=== PATIENT | female | born 1970 | race Caucasian/White ===

== ENCOUNTER 2019-10-15 09:51 | Outpatient (CLI) | payer OTHER, SELFPAY ==
--- NOTE | 2019-10-15 09:56 | US_ITS ---
WS: [id number] ULTRASOUND PELVIS TECHNIQUE: Transabdominal and transvaginal. ULTRASOUND PELVIS TECHNIQUE: Transabdominal. CLINICAL INFORMATION: PELVIC PAIN LMP: Menopause : No. COMPARISON: None. FINDINGS: Cervix measures 2.3 cm Uterus Orientation: Anteverted. Size: 5.50 cm x 3.5 cm x 2.3 cm. Masses: None. Cervix: 2.3 cm. Endometrium: Normal. Endometrium thickness: 0.4 cm. Adnexa: Normal. Right ovary size: 1.7 cm x 1.1 cm x 1.8 cm. Right ovary volume: 1.7 ccm3. Left ovary size: 1.3 cm x 1.0 cm x 0.5 cm. Left ovary volume: 0.3 ccm3 Free fluid: None. Other findings: None. US/US pelvic with transvaginal IMPRESSION: 1. Normal uterus and cervix. 2. Fluid in the cul-de-sac. 3. Ovaries are somewhat diminutive but otherwise normal in appearance
== END 2019-10-15 09:52 | disposition home or self-care (01) ==
LOC: RAD 09:55
PROVIDERS: PCP Family Medicine; Visit Provider Family Medicine
DX: R10.2 Pelvic and perineal pain (principal)
CPT/HCPCS: 76830; 76856

== ENCOUNTER 2019-12-18 14:38 | Outpatient (CLI) | payer OTHER, SELFPAY ==
--- NOTE | 2019-12-18 14:43 | MM_ITS ---
WS: [id number] BILATERAL SCREENING DIGITAL MAMMOGRAM WITH CAD HISTORY: SCREENING COMPARISON: None available. Bilateral CC and MLO views submitted. Computer aided detection analyzed. Breast composition: There are scattered areas of fibroglandular density. No suspicious masses, microc alcifications or architectural distortion. MM/[place] [id number] IMPRESSION: BI-RADS: 1-Negative FOLLOW UP: 1 Year Follow-up
== END 2019-12-18 14:39 | disposition home or self-care (01) ==
LOC: RADSHAW 14:42
PROVIDERS: PCP Family Medicine; Visit Provider Family Medicine
DX: Z12.31 Encounter for screening mammogram for malignant neoplasm of breast (principal)
CPT/HCPCS: 77067

== ENCOUNTER → 2019-12-20 17:14 | Outpatient (BNVA) | payer OTHER, SELFPAY | PROVIDERS: PCP Family Medicine; Visit Provider Surgery | DX: Z11.59 Encounter for screening for other viral diseases (principal) | CPT/HCPCS: 87635 ==

== ENCOUNTER 2019-12-25 07:54 | Day surgery (SDC) | payer OTHER, SELFPAY ==
[2019-12-21 07:20] VITALS: BMI 28.3
[2019-12-25 08:09] VITALS: BP 130/78; PULSE 92; RESP 18; TEMP 36.8; O2SAT 99
[2019-12-25] MEDS: sodium chloride 0.9% 1,000 ML 30 ML IV (08:15)
--- NOTE | 2019-12-25 08:51 | ANES.PREANE2 ---
Pre-Anesthetic Assessment Pre-Anesthetic Assessment: Height/Weight: Height 1.63 m Weight 74.843 kg Temp Pulse Resp BP Pulse Ox 98.3 F 92 18 130/78 99 12/25/19 08:09 12/25/19 08:09 12/25/19 08:09 12/25/19 08:09 12/25/19 08:09 Preop Diagnosis: screening Proposed Procedure: Operation Date: 12/25/19 09:30 Proposed Procedures p Colonoscopy 15111 Z12.11(Not Applicable) - Ze Bal MD Familial anesthetic complications: None Was Beta Harpreet taken within 24 hours: N/A Last intake: Intake Last Liquid Date 12/24/19 Last Liquid Time 23:52 Last Solid Date 12/22/19 Last Solid Time 07:00 Social: Social History: No alcohol and No tobacco Exam: Pre-Anes Outpt Exam: alert, oriented x 3, clear to auscultation bilaterally and regular rate & rhythm Airway: Cervical ROM: WNL MP: 1 Dentition: Other (missing) GI: GI: GERD Metabolic: Metabolic: Thyroid Neuropsych: Neuropsych: Anxiety Anesthetic Plan: ASA status: 2 Anesthesia: MAC Risk of > 500 ml blood loss (7ml/kg in children): No Data Anesthesia Cardiac Studies: No Data to Display
--- NOTE | 2019-12-25 10:52 | P.HP_ITS ---
Same Day Surgery H&P Indication for Procedure/HPI DATE OF PROCEDURE: December 25, 2019 CHIEF COMPLAINT/INDICATIONFOR SURGICAL PROCEDURE: screening colonoscopy PREOP DIAGNOSIS: screening PLANNED PROCEDRUE: Operation Date: 12/25/19 09:30 Proposed Procedures p Colonoscopy 20340 Z12.11(Not Applicable) - Ze Bal MD Medications/Allergies* Home Medications Medication Instructions Recorded Confirmed Type amitriptyline 25 mg tablet 75 mg PO DAILY 11/13/19 12/25/19 History clonazepam 1 mg tablet 1.5 mg PO BID tab 11/13/19 12/21/19 History epinephrine 0.3 mg/0.3 mL 0.3 mg IM Q10M PRN 11/13/19 12/21/19 History injection, auto-injector fluticasone propionate 50 1 spray INTRANASAL BID PRN 11/13/19 12/21/19 History mcg/actuation nasal spray,suspension gabapentin 100 mg capsule 100 mg PO TID 11/13/19 12/21/19 History levothyroxine 125 mcg capsule 125 mcg PO DAILY 11/13/19 12/21/19 History sumatriptan succinate 100 mg tablet See Rx Instructions PO .COMPLEX 11/13/19 12/21/19 History bupropion HCl [Wellbutrin XL] 150 mg PO QAM 12/21/19 12/21/19 History fexofenadine-pseudoephedrine 1 tab PO QAM 12/21/19 12/21/19 History [Joy-D 24 Hour] Allergies/Adverse Reactions Allergy/AdvReac Type Severity Reaction Status Date / Time Penicillins Allergy ALGY-Anaphy Verified 11/13/19 13:40 laxis venom-honey bee Allergy ALGY-Anaphy Verified 11/13/19 13:40 laxis Pertinent Exam Findings alert, oriented x 3 and regular rate & rhythm Recommendations Surgery/Procedure today Coding Level of Care Code Acute Remittance Clerk for Ankit Willis
[2019-12-25 11:26] VITALS: BP 118/81; PULSE 75; RESP 18; TEMP 36.1; O2SAT 100
[2019-12-25 11:44] VITALS: BP 122/84; PULSE 76; RESP 16; O2SAT 100
== END 2019-12-25 11:50 | disposition home or self-care (01) ==
PROVIDERS: PCP Family Medicine; Visit Provider Surgery
PROC: 0DJD8ZZ Inspection of Lower Intestinal Tract, Via Natural or Artificial Opening Endoscopic (ICD-10-PCS; CPT 45378; principal; 2019-12-25 09:30)
DX: Z12.11 Encounter for screening for malignant neoplasm of colon (principal); Z80.0 Family history of malignant neoplasm of digestive organs; F41.9 Anxiety disorder, unspecified
CPT/HCPCS: 12345; 45378; J2704; J7030

== ENCOUNTER 2020-09-08 12:38 | Outpatient (CLI) | payer SELFPAY ==
--- NOTE | 2020-09-08 12:49 | XR_ITS ---
WS: [id number] PROCEDURE: XR chest 2V* [id number] CLINICAL INFORMATION: RIGHT COSTOCHONDRITIS COMPARISON: FINDINGS: Heart: Normal cardiac silhouette. Lungs: Moderate chronic emphysematous changes. No acute pulmonary infiltrates. No focal consolidation or pleural fluid. Bones: Mild thoracic kyphosis. Disc space narrowing thoracolumbar junction. XR/XR chest 2V* [id number] IMPRESSION: 1. Moderate chronic emphysematous changes. 2. No acute pulmonary infiltrates. No focal pneumonia or pleural fluid.
--- NOTE | 2020-09-08 12:49 | XR_ITS ---
WS: [id number] KNEE LEFT TECHNIQUE: 3 views of the left knee CLINICAL INFORMATION: ACUTE LEFT KNEE PAIN COMPARISON: None. FINDINGS: Normal anatomic alignment. Mild tricompartmental arthritis. Slight hypertrophic changes along the levon nt line. Normal patella. Small suprapatellar effusion. XR/XR knee LT 3V* [id number] IMPRESSION: 1. Mild tricompartmental arthritis. No acute fractures. 2. Mild soft tissue edema. Small suprapatellar effusion. Kellgren-Bassem Classification: grade 2 (minimal): definite osteophytes and p ossible joint space narrowing
--- NOTE | 2020-09-08 12:49 | XR_ITS ---
WS: [id number] SHOULDER LEFT TECHNIQUE: 3 views of the left shoulder CLINICAL INFORMATION: LT SHOULDER PAIN COMPARISON: None. FINDINGS: Normal acromioclavicular joint. Normal glenohumeral joint. Acromion is normal in appearance. Normal g lenoid. No evidence of acute fracture dislocation. XR/XR shoulder LT min 2V* [id number] IMPRESSION: Normal left shoulder.
== END 2020-09-08 12:39 | disposition home or self-care (01) ==
PROVIDERS: PCP Family Medicine; Visit Provider Clinical Nurse Specialist Adult Health
DX: M94.0 Chondrocostal junction syndrome [Tietze] (principal); M25.512 Pain in left shoulder; M25.562 Pain in left knee; R60.0 Localized edema; M13.862 Other specified arthritis, left knee
CPT/HCPCS: 71046; 73030; 73562

== ENCOUNTER 2020-11-03 10:57 | Outpatient (CLI) | payer MEDICARE, SELFPAY ==
--- NOTE | 2020-11-03 11:09 | CT_ITS ---
WS: [id number] CT CHEST TECHNIQUE: Contrast enhanced CT of the chest with coronal and sagittal reformatted images. CLINICAL INFORMATION: DYSPNEA, ABNORMAL CHEST RADIOGRAPH COMPARISON: Radiograph September 08, 2020 DLP: 798.[address] scans at [facility] use at least one of these dose optimization techniques: automated e xposure control; mA and/or kV adjustment per patient size (includes targeted exams where dose is matc hed to clinical indication); or iterative reconstruction. FINDINGS: Both lungs are well aerated. No acute pulmonary infiltrates. No focal consolidation or pleural fluid. Normal caliber thoracic aorta. Proximal main pulmonary arteries are normal. Normal GE junction. No m ediastinal or hilar lymphadenopathy. No axillary lymphadenopathy. CT/CT chest w con* [id number] IMPRESSION: 1. No acute pulmonary infiltrates. No consolidation or pleural fluid. 2. No mediastinal or hilar lymphadenopathy. 3. No other significant findings.
[2020-11-03] MEDS: iohexol 300 mg/mL 100 mL Btl IV (11:25)
== END 2020-11-03 10:58 | disposition home or self-care (01) ==
PROVIDERS: PCP Family Medicine; Visit Provider Family Medicine
DX: R06.00 Dyspnea, unspecified (principal); R91.8 Other nonspecific abnormal finding of lung field
CPT/HCPCS: 71260; Q9967

== ENCOUNTER → 2021-06-22 14:58 | Outpatient (BNVA) | payer MEDICARE, SELFPAY | PROVIDERS: PCP Family Medicine; Visit Provider Family Medicine | DX: R53.83 Other fatigue (principal); F41.9 Anxiety disorder, unspecified | CPT/HCPCS: 80053; 82607; 83880; 84443; 85025; 86140; 86200 ==

== ENCOUNTER 2021-09-03 12:31 | Outpatient (CLI) | payer MEDICARE, SELFPAY ==
--- NOTE | 2021-09-03 12:47 | XR_ITS ---
WS: [id number] Right foot, AP and lateral views, 09/03/2021 Clinical Data: BILATERAL ANKLE PAIN Comparison: None. Findings: No fractures or dislocations are seen. No bone destruction or erosion is noted. The joint spaces and soft tissues are normal. XR/XR foot RT 2V [id number] Impression: Negative right foot.
--- NOTE | 2021-09-03 12:47 | XR_ITS ---
WS: [id number] Right ankle, AP and lateral views, 09/03/2021 Clinical Data: R ANKLE PAIN Comparison: None. Findings: No fractures or dislocations are seen. The ankle mortise is normal. The talus and calcaneus are unrem arkable. No soft tissue swelling over the medial or lateral malleolus is seen. XR/XR ankle RT 2V [id number] Impression: Negative right ankle.
--- NOTE | 2021-09-03 12:47 | XR_ITS ---
WS: [id number] Left ankle, AP and lateral views, 09/03/2021 Clinical Data: L ANKLE PAIN Comparison: None. Findings: No fractures or dislocations are seen. The ankle mortise is normal. The talus and calcaneus are unrem arkable. There is swelling over the medial and lateral malleolus. There is a plantar spur. XR/XR ankle LT 2V [id number] Impression: Soft tissue swelling over medial and lateral malleolus.
--- NOTE | 2021-09-03 12:47 | XR_ITS ---
WS: [id number] Left foot, AP and lateral views, 09/03/2021 Clinical Data: BILATERAL ANKLE PAIN Comparison: None. Findings: No fractures or dislocations are seen. No bone destruction or erosion is noted. The joint spaces and soft tissues are normal. XR/XR foot LT 2V [id number] Impression: Negative left foot.
== END 2021-09-03 12:32 | disposition home or self-care (01) ==
LOC: RAD 12:35
PROVIDERS: PCP Family Medicine; Visit Provider Family Medicine
DX: M25.571 Pain in right ankle and joints of right foot (principal); M25.572 Pain in left ankle and joints of left foot; M79.89 Other specified soft tissue disorders
CPT/HCPCS: 73600; 73620

== ENCOUNTER → 2021-10-14 10:49 | Outpatient (BNVA) | payer MEDICARE, SELFPAY | PROVIDERS: PCP Family Medicine; Visit Provider Internal Medicine | DX: M25.50 Pain in unspecified joint (principal); Z11.59 Encounter for screening for other viral diseases; Z11.1 Encounter for screening for respiratory tuberculosis; R79.82 Elevated C-reactive protein (CRP) | CPT/HCPCS: 73120; 73522; 73600; 81003; 82550; 83516; 85651; 86140; 86160; 86162; 86200; 86235; 86255; 86376; 86431; 86480; 86704; 86803; 87340; 99214 ==

== ENCOUNTER → 2021-11-24 08:52 | Outpatient (BNVA) | payer MEDICARE, SELFPAY | PROVIDERS: PCP Family Medicine; Visit Provider Internal Medicine | DX: R76.8 Other specified abnormal immunological findings in serum (principal); M79.673 Pain in unspecified foot; R79.82 Elevated C-reactive protein (CRP) | CPT/HCPCS: 99214 ==

== ENCOUNTER 2022-03-15 12:30 | Outpatient (CLI) | payer MEDICARE, SELFPAY ==
[2022-03-15 13:05] LABS: Basophils # 0.1 10^3/uL (0.0-0.1); Basophils % 1.4 %; Eosinophils # 0.3 10^3/uL (0.0-0.8); Eosinophils % 5.1 %; Hematocrit 39.9 % (37.0-47.0); Hemoglobin 12.6 g/dL (11.5-15.3); Lymphocytes # 2.7 10^3/uL (0.8-4.8); Lymphocytes % 42.2 %; Mean Corpuscular HGB Conc 31.6 g/dL (30.0-36.0); Mean Corpuscular Volume 101.3 fl (81-99); Mean Platelet Volume 9.6 fL (7.4-10.4); Monocytes # 0.5 10^3/uL (0.2-0.9); Monocytes % 7.3 %; Neutrophils # 2.77 10^3/uL (1.8-7.7); Neutrophils % 43.8 %; Nucleated Red Blood Cells % 0 %; Platelet Count 276 10^3/cmm (130-400); Red Blood Count 3.94 10^6/uL (4.1-5.3); Red Cell Distribution Width 11.9 % (12.1-15.1); White Blood Count 6.3 10^3/uL (4.0-10.0)
[2022-03-15 13:23] LABS: Alanine Aminotransferase 20 U/L (0-33); Albumin Level 4.3 g/dL (3.5-5.2); Alkaline Phosphatase 113 U/L (35-105); Anion Gap 13.3 (5-19); Aspartate Amino Transferase 23 U/L (0-32); Blood Urea Nitrogen 10 mg/dL (6-20); C Reactive Protein 3.3 mg/L (0.0-4.9); Calcium 8.9 mg/dL (8.5-10.5); Carbon Dioxide 26 mmol/L (22-29); Chloride 106 mmol/L (98-107); Globulin 2.8 g/dL (1.3-4.6); Glomerular Filtration Rate 65.5 mL/min (90-130); Glucose 96 mg/dL (65-115); Osmolality Calculated 291 mOsm/kg (285-295); Potassium 4.3 mmol/L (3.5-5.1); Sodium 141 mmol/L (136-145); Total Bilirubin 0.2 mg/dL (0.15-1.2); Total Protein 7.1 g/dL (6.6-8.7)
[2022-03-15 13:30] LABS: Erythrocyte Sedimentation Rate 3 mm/hr (0-15)
== END 2022-03-15 12:31 | disposition home or self-care (01) ==
PROVIDERS: PCP Family Medicine; Visit Provider Internal Medicine
DX: G89.29 Other chronic pain (principal); R13.10 Dysphagia, unspecified; R51.9 Headache, unspecified
CPT/HCPCS: 36415; 80053; 85025; 85651; 86140

== ENCOUNTER → 2022-04-05 11:54 | Outpatient (BNVA) | payer MEDICARE, SELFPAY | PROVIDERS: PCP Family Medicine; Visit Provider Internal Medicine | DX: M06.9 Rheumatoid arthritis, unspecified (principal); R76.8 Other specified abnormal immunological findings in serum; M79.673 Pain in unspecified foot; R79.82 Elevated C-reactive protein (CRP); R13.10 Dysphagia, unspecified; D75.89 Other specified diseases of blood and blood-forming organs | CPT/HCPCS: 36415; 72100; 80053; 81291; 82533; 84436; 84439; 84443; 85025; 85651; 86140; 99214 ==

== ENCOUNTER 2022-04-12 06:30 | Outpatient (CLI) | payer MEDICARE, SELFPAY ==
--- NOTE | 2022-04-12 06:30 | CT_ITS ---
WS: [id number] CT HEAD TECHNIQUE: Noncontrast and contrast-enhanced CT of the head. CLINICAL INFORMATION: evaluate for MS COMPARISON: MRI 2018 DLP: 1997.[address] scans at [facility] use at least one of these dose optimization techniques: automated e xposure control; mA and/or kV adjustment per patient size (includes targeted exams where dose is matc hed to clinical indication); or iterative reconstruction. FINDINGS: No evidence of intracranial hemorrhage or mass effect. Ventricular system and basal cisterns are noel nt. No abnormal intracranial enhancement. Previously described demyelinating lesions better seen on M RI. No significant parenchymal volume loss. Normal posterior fossa. Mild mucosal thickening ethmoid air cells. Mastoid air cells well aerated. CT/CT head wo/w con 13051 IMPRESSION: 1. No evidence of intracranial hemorrhage or mass effect. 2. Previously described demyelinating lesions seen on the prior MRI not well s een on this study. White matter lesions would be better evaluated with MRI. 3. No abnormal intracranial enhancement. 4. No significant parenchymal volume loss. 5. No other acute findings.
[2022-04-12] MEDS: iohexol 350 mg/mL 500 mL Btl (per mL) IV (07:17)
== END 2022-04-12 06:31 | disposition home or self-care (01) ==
LOC: RAD 06:33
PROVIDERS: PCP Family Medicine; Visit Provider Family Medicine
DX: R51.9 Headache, unspecified (principal); G89.29 Other chronic pain
CPT/HCPCS: 70470; Q9967

== ENCOUNTER → 2022-06-29 08:59 | Outpatient (BNVA) | payer MEDICARE, SELFPAY | PROVIDERS: PCP Family Medicine; Visit Provider Internal Medicine | DX: R76.8 Other specified abnormal immunological findings in serum (principal); E03.9 Hypothyroidism, unspecified; M79.673 Pain in unspecified foot; D75.89 Other specified diseases of blood and blood-forming organs; Z15.89 Genetic susceptibility to other disease | CPT/HCPCS: 99214 ==

== ENCOUNTER → 2022-10-27 13:46 | Outpatient (BNVA) | payer MEDICARE, SELFPAY | PROVIDERS: PCP Family Medicine; Visit Provider Internal Medicine | DX: R76.8 Other specified abnormal immunological findings in serum (principal); M79.673 Pain in unspecified foot; D75.89 Other specified diseases of blood and blood-forming organs; Z15.89 Genetic susceptibility to other disease; E03.9 Hypothyroidism, unspecified | CPT/HCPCS: 99214 ==

== ENCOUNTER 2022-11-04 13:47 | Outpatient (CLI) | payer MEDICARE, SELFPAY ==
[2022-11-04 14:45] LABS: Basophils # 0.1 10^3/uL (0.0-0.1); Basophils % 1.4 %; Eosinophils # 0.3 10^3/uL (0.0-0.8); Eosinophils % 4.2 %; Hematocrit 39.7 % (36-47); Lymphocytes # 1.9 10^3/uL (0.8-4.8); Lymphocytes % 23.9 %; Mean Corpuscular Hemoglobin 32.5 pg (27-33); Mean Corpuscular Volume 101.5 fl (85-98); Mean Platelet Volume 8.9 fL (7.4-10.4); Monocytes # 0.3 10^3/uL (0.2-0.9); Monocytes % 4.1 %; Neutrophils # 5.15 10^3/uL (1.8-7.7); Nucleated Red Blood Cells % 0 %; Platelet Count 324 10^3/cmm (157-399); Red Blood Count 3.91 10^6/uL (3.85-5.65); Red Cell Distribution Width 12.5 % (12.1-15.1); White Blood Count 7.81 10^3/uL (3.29-11.43)
[2022-11-04 14:47] LABS: Erythrocyte Sedimentation Rate 8 mm/hr (0-15)
[2022-11-04 15:04] LABS: Alanine Aminotransferase 13 U/L (0-33); Albumin Level 4.2 g/dL (3.5-5.2); Alkaline Phosphatase 98 U/L (35-105); Anion Gap 12.8 (5-19); Aspartate Amino Transferase 18 U/L (0-32); Blood Urea Nitrogen 25 mg/dL (6-20); Calcium 9.3 mg/dL (8.5-10.5); Carbon Dioxide 28 mmol/L (22-29); Chloride 104 mmol/L (98-107); Globulin 3.1 g/dL (1.3-4.6); Glomerular Filtration Rate 42.7 mL/min (90-130); Glucose 89 mg/dL (65-115); Osmolality Calculated 292 mOsm/kg (285-295); Potassium 5.8 mmol/L (3.5-5.1); Sodium 139 mmol/L (136-145); Total Bilirubin 0.2 mg/dL (0.15-1.2); Total Protein 7.3 g/dL (6.6-8.7)
== END 2022-11-04 13:48 | disposition home or self-care (01) ==
PROVIDERS: PCP Family Medicine; Visit Provider Internal Medicine
DX: R76.8 Other specified abnormal immunological findings in serum (principal); M25.50 Pain in unspecified joint
CPT/HCPCS: 36415; 80053; 85025; 85651; 86140

== ENCOUNTER → 2022-11-18 09:01 | Outpatient (BNVA) | payer MEDICARE, SELFPAY | PROVIDERS: PCP Family Medicine; Referring Provider Internal Medicine; Visit Provider Internal Medicine | DX: E03.9 Hypothyroidism, unspecified (principal); R13.10 Dysphagia, unspecified; E66.9 Obesity, unspecified; Z71.3 Dietary counseling and surveillance; Z79.890 Hormone replacement therapy; Z68.32 Body mass index [BMI] 32.0-32.9, adult | CPT/HCPCS: 36415; 84439; 84443; 99204 ==

== ENCOUNTER 2022-11-26 11:46 | Outpatient (CLI) | payer MEDICARE, SELFPAY ==
[2022-11-26 12:49] LABS: Alanine Aminotransferase 12 U/L (0-33); Albumin Level 4.5 g/dL (3.5-5.2); Alkaline Phosphatase 96 U/L (35-105); Anion Gap 14.2 (5-19); Aspartate Amino Transferase 20 U/L (0-32); Blood Urea Nitrogen 19 mg/dL (6-20); Calcium 9.6 mg/dL (8.5-10.5); Carbon Dioxide 27 mmol/L (22-29); Chloride 100 mmol/L (98-107); Creatine Phosphokinase 58 U/L (26-192); Globulin 3.2 g/dL (1.3-4.6); Glomerular Filtration Rate 51.8 mL/min (90-130); Glucose 89 mg/dL (65-115); Osmolality Calculated 284 mOsm/kg (285-295); Potassium 5.2 mmol/L (3.5-5.1); Sodium 136 mmol/L (136-145); Total Bilirubin 0.3 mg/dL (0.15-1.2); Total Protein 7.7 g/dL (6.6-8.7)
[2022-11-26 13:14] LABS: Add Urine Culture? No; Add Urine Microscopic? YES; Bacteria Urine 1+ /hpf; Bilirubin Urine Neg (Negative); Blood Urine Neg (Negative); Glucose Urine UA Norm (Normal); Ketones Urine Negative (Negative); Leukocyte Esterase Urine 2+ (Negative); Nitrate Urine Negative (Negative); Protein Urine Neg (Negative); RBC Urine 0-4 /hpf (0-2); Urine Appearance SL Hazy (CLEAR); Urine Color Yellow (Yellow); Urobilinogen Urine Norm (Negative); WBC Urine 25-40 /hpf (0-5); pH Urine 5 (5-7)
== END 2022-11-26 11:47 | disposition home or self-care (01) ==
LOC: LAB 11:47
PROVIDERS: PCP Family Medicine; Visit Provider Internal Medicine
DX: E87.5 Hyperkalemia (principal)
CPT/HCPCS: 36415; 80053; 81001; 82550; 84100

== ENCOUNTER → 2023-01-04 14:11 | Outpatient (BNVA) | payer MEDICARE, SELFPAY | PROVIDERS: PCP Family Medicine; Visit Provider Internal Medicine | DX: E03.9 Hypothyroidism, unspecified (principal); Z15.89 Genetic susceptibility to other disease; R76.8 Other specified abnormal immunological findings in serum; D75.89 Other specified diseases of blood and blood-forming organs; E87.5 Hyperkalemia | CPT/HCPCS: 36415; 73600; 80053; 81001; 83090; 85025; 87086; 99213 ==

== ENCOUNTER → 2023-03-16 11:00 | Outpatient (BNVA) | payer MEDICARE, SELFPAY | PROVIDERS: PCP Family Medicine; Visit Provider Internal Medicine | DX: R63.5 Abnormal weight gain (principal); E03.9 Hypothyroidism, unspecified; Z71.3 Dietary counseling and surveillance; E66.9 Obesity, unspecified; Z79.890 Hormone replacement therapy; Z68.28 Body mass index [BMI] 28.0-28.9, adult | CPT/HCPCS: 36415; 84439; 84443; 99214 ==

== ENCOUNTER 2023-05-12 14:33 | Outpatient (CLI) | payer MEDICARE, SELFPAY ==
[2023-05-12 15:41] LABS: Free T4 Free Thyroxine 1.17 ng/dL (0.82-1.77)
[2023-05-13 11:00] LABS: Thyroid Stimulating Hormone 1.79 uIU/mL (0.27-4.20)
== END 2023-05-12 14:34 | disposition home or self-care (01) ==
LOC: LAB 14:38
PROVIDERS: PCP Family Medicine; Visit Provider Internal Medicine
DX: E03.9 Hypothyroidism, unspecified (principal); R63.5 Abnormal weight gain
CPT/HCPCS: 36415; 84439; 84443

== ENCOUNTER → 2023-05-13 09:01 | Outpatient (BNVA) | payer MEDICARE, SELFPAY | PROVIDERS: PCP Family Medicine; Visit Provider Internal Medicine | DX: R63.5 Abnormal weight gain (principal); E03.9 Hypothyroidism, unspecified; G35 Multiple sclerosis; R13.10 Dysphagia, unspecified; E66.9 Obesity, unspecified; R29.818 Other symptoms and signs involving the nervous system | CPT/HCPCS: 99214 ==

== ENCOUNTER 2023-06-05 22:05 | Emergency (ER) | payer MEDICARE, SELFPAY ==
[2023-06-05 22:13] VITALS: BP 128/84; PULSE 103; RESP 16; TEMP 36.7; O2SAT 97; BMI 26.6
--- NOTE | 2023-06-05 23:03 | W.ED.GENADLT ---
HPI - General Adult General: Chief complaint: General Medical Stated complaint: welps bite on neck nausea dizzy fever Time Seen by Provider: 06/05/23 22:56 History of Present Illness: 52-year-old female reports that she was bit on the back of her neck about 7 to 10 days ago. Patient reports that she did not know what better. But since then she has felt unwell. Patient reports worsening symptoms today. Patient appears nontoxic. Patient does have a history of MS. Review of Systems General: Reports: 10 or more systems reviewed and unremarkable except in HPI and below PFSH ED PFSH: Medical History Multiple sclerosis Undifferentiated connective tissue disease Hypothyroidism Foot pain Surgical History Status post colonoscopy (12/25/19) repeat in 5 years Social History Smoking and tobacco/nicotine status: never used tobacco/nicotine Physical Exam Const: COMMON NORMALS: alert HENMT: COMMON NORMALS: normocephalic HEAD & SCALP: normocephalic Neck/C-Spine: COMMON NORMALS: full ROM Chest: COMMONS NORMALS: normal inspection of the chest Resp: COMMON NORMALS: normal respiratory effort Cardio: COMMON NORMALS: regular rate RATE: regular rate GI: COMMON NORMALS: non-tender Back/Pelvis: COMMON NORMALS: thoracic and lumbar spine normal to inspection Extremity: COMMON NORMALS: full ROM Neuro: SENSORIUM/ORIENTATION: Yes alert Skin: COMMON NORMALS: turgor normal NARRATIVE SKIN EXAM: 3 scabbed lesions to the back of the neck appear to be healing insect bites. No other abnormalities noted on skin GENERAL SKIN EXAM: turgor normal Course Vital Signs: Vital signs: Vital Signs Temperature 98.1 F 06/05/23 22:13 Pulse Rate 89 06/05/23 23:18 Respiratory Rate 16 06/05/23 23:18 Blood Pressure 113/76 06/05/23 23:18 Pulse Oximetry 95 06/05/23 23:18 Oxygen Delivery Me thod Room Air 06/05/23 23:18 MDM - General Adult Medical Decision Making Patient comes in today for concerns of insect bite to the back of her neck. On exam the insect bites appear to be healing without any signs of significant redness or abnormality. Patient reports some malaise. Respirations are even lungs are clear to auscultation. Skin is warm and dry vital signs are normal. Differential diagnosis includes not limited to anxiety about health, tickborne illness, viral syndrome, malingering. Laboratory values were unremarkable. Outstanding lab will be Panel. Believe patient might have a viral infection secondary to insect bite although this is not conclusive. This time I just recommended supportive care and following up with primary care for review of tick panel when it comes in. Patient was given 1 promethazine for complaints of nausea while in the ER. Lab Data 06/05/23 23:22 06/05/23 23:22 Laboratory Results WBC 8.91 10^3/uL (3.29-11.43) 06/05/23 23: RBC 3.93 10^6/uL (3.85-5.65) 06/05/23 23:22 Hgb 12.90 g/dL (11.27-16.99) 06/05/23 23: Hct 39.0 % (36-47) 06/05/23 23: MCV 99.2 fl (85-98) H 06/05/23 23: MCH 32.8 pg (27-33) 06/05/23 23: MCHC 33.1 g/dL (30-55) 06/05/23 23: RDW 13.0 % (12.1-15.1) 06/05/23 23:22 Plt Count 271 10^3/cmm (157-399) 06/05/23 23: MPV 9.0 fL (7.4-10.4) 06/05/23 23: Neut % (Auto) 81.5 % 06/05/23 23: Lymph % (Auto) 3.5 % 06/05/23 23: Roosevelt % (Auto) 1.9 % 06/05/23 23: Eos % (Auto) 12.6 % 06/05/23 23: Baso % (Auto) 0.2 % 06/05/23 23:22 Neut # (Auto) 7.26 10^3/uL (1.8-7.7) 06/05/23 23: Lymph # (Auto) 0.3 10^3/uL (0.8-4.8) L 06/05/23 23:22 Roosevelt # (Auto) 0.2 10^3/uL (0.2-0.9) 06/05/23 23:22 Eos # (Auto) 1.1 10^3/uL (0.0-0.8) H 06/05/23 23:22 Baso # (Auto) 0.0 10^3/uL (0.0-0.1) 06/05/23 23:22 Nucleated RBC % (auto) 0 % 06/05/23 23:22 Nucleated RBCs # 0.0 /100WBC 06/05/23 23:22 ESR 8 mm/hr (0-15) 06/05/23 23:22 Sodium 137 mmol/L (136-145) 06/05/23 23:22 Potassium 4.6 mmol/L (3.5-5.1) 06/05/23 23:22 Chloride 103 mmol/L (98-107) 06/05/23 23:22 Carbon Dioxide 21 mmol/L (22-29) L 06/05/23 23:22 Anion Gap 17.6 (5-19) 06/05/23 23:22 BUN 20 mg/dL (6-20) 06/05/23 23:22 Creatinine 1.1 mg/dL (0.5-0.9) H 06/05/23 23:22 GFR Calculation 51.8 mL/min (90-130) L 06/05/23 23:22 Glucose 120 mg/dL (65-115) H 06/05/23 23:22 Calculated Osmolality 288 mOsm/kg (285-295) 06/05/23 23:22 Calcium 9.1 mg/dL (8.5-10.5) 06/05/23 23:22 Total Bilirubin 0.4 mg/dL (0.15-1.2) 06/05/23 23:22 AST 22 U/L (0-32) 06/05/23 23:22 ALT 22 U/L (0-33) 06/05/23 23:22 Alkaline Phosphatase 119 U/L (35-105) H 06/05/23 23:22 C-Reactive Protein 12.8 mg/L (0.0-4.9) H 06/05/23 23:22 Total Protein 7.2 g/dL (6.6-8.7) 06/05/23 23:22 Albumin 4.4 g/dL (3.5-5.2) 06/05/23 23:22 Globulin 2.8 g/dL (1.3-4.6) 06/05/23 23:22 No radiology studies performed this visit Discharge Plan Discharge Patient Disposition: Home Clinical Impression: Insect bite, Nausea Condition: Stable Prescriptions: No Action epinephrine [EpiPen] 0.3 mg/0.3 mL auto-injector 0.3 mg IM Q10M PRN (Reason: Anaphylaxis) Rx Instructions: for 2 doses prednisone 5 mg tablet See Rx Instructions PO DAILY Qty: 30 0RF Rx Instructions: 1-2 tablets daily orally daily; Victoza 2-Mike 0.6 mg/0.1 mL (18 mg/3 mL) pen injector See Rx Instructions .ROUTE .COMPLEX Qty: 9 0RF Dose Instruction: INJECT 0.6mg SUBCUTANEOUSLY ONCE DAILY FOR SEVEN DAYS; THEN INJECT 1.2mg DAILY FOR SEVEN DAYS, THEN stay oon 1.8mg SUBCUTANEOUSLY DAILY Rx Instructions: 1.8mg SUBCUTANEOUSLY DAILY (DME) pen needle, diabetic [Comfort EZ Pen Campbell] 32 gauge x 3/16 needle See Rx Instructions .Route Qty: 100 0RF Rx Instructions: As directed May substitute meloxicam 7.5 mg tablet 7.5 mg PO DAILY Qty: 30 11RF hydroxychloroquine 200 mg tablet 200 mg PO BID Qty: 60 3RF benzonatate 100 mg capsule 100 mg PO TID PRN (Reason: cough) Qty: 45 0RF prednisone 20 mg tablet See Rx Instructions .Route .COMPLEX Qty: 14 0RF Rx Instructions: 2 tabs PO daily for 4 days, then 1 tab PO daily X 4 days, then 0.5 tab daily for 4 days, then stop; bupropion HCl 300 mg tablet extended release 24 hr See Rx Instructions .ROUTE .COMPLEX Qty: 30 12RF Dose Instruction: TAKE 1 TABLET BY MOUTH EVERY DAY Rx Instructions: TAKE 1 TABLET BY MOUTH EVERY DAY sumatriptan succinate 100 mg tablet See Rx Instructions .ROUTE .COMPLEX Qty: 9 11RF Dose Instruction: TAKE 1/2 TO 1 TABLET BY MOUTH EVERY 2 HOURS NEEDED FOR HEADACHES(MAX 2 IN 24 HOURS) Rx Instructions: TAKE 1/2 TO 1 TABLET BY MOUTH EVERY 2 HOURS NEEDED FOR HEADACHES(MAX 2 IN 24 HOURS) gabapentin 100 mg capsule See Rx Instructions .ROUTE .COMPLEX Qty: 90 3RF Dose Instruction: TAKE 1 CAPSULE BY MOUTH THREE TIMES DAILY Rx Instructions: TAKE 1 CAPSULE BY MOUTH THREE TIMES DAILY clonazepam 2 mg tablet 2 mg PO BID Qty: 60 4RF amitriptyline 25 mg tablet See Rx Instructions .ROUTE .COMPLEX Qty: 60 11RF Dose Instruction: TAKE 1-4 TABLETS BY MOUTH EVERY DAY AT NIGHT Rx Instructions: TAKE 1-4 TABLETS BY MOUTH EVERY DAY AT NIGHT fluoxetine 20 mg capsule See Rx Instructions .ROUTE .COMPLEX Qty: 30 11RF Dose Instruction: TAKE 1 CAPSULE BY MOUTH DAILY Rx Instructions: TAKE 1 CAPSULE BY MOUTH DAILY propranolol 10 mg tablet See Rx Instructions .ROUTE .COMPLEX Qty: 180 3RF Dose Instruction: TAKE 1 TABLET BY MOUTH TWICE DAILY Rx Instructions: TAKE 1 TABLET BY MOUTH TWICE DAILY levothyroxine 175 mcg tablet See Rx Instructions .ROUTE .COMPLEX Qty: 90 3RF Dose Instruction: TAKE 1 TABLET BY MOUTH EVERY DAY Rx Instructions: TAKE 1 TABLET BY MOUTH EVERY DAY Discharge Orders: Discharge ED (Routine); Ordered 06/06/23 Ordered By: Wenceslao Gunter Referrals: Antonio Nash MD [Primary Care Provider] - Discharge Diet: Usual diet Discharge Activity: Increase activity as tolerated Patient Instructions: Insect Bite or Sting (ED) Activity Restrictions/Additional Instructions: Drink plenty water and fluids. Use acetaminophen and/or ibuprofen as needed for discomfort. Get plenty of rest. Follow-up with primary care in 2 to 3 days for recheck. Results for tick panel should come back in 3 to 5 days. Coding Level of Care Code ED Weight And Balance Control Agent for Ankit Willis
[2023-06-05 23:18] VITALS: BP 113/76; PULSE 89; RESP 16; O2SAT 95
[2023-06-05 23:33] LABS: Erythrocyte Sedimentation Rate 8 mm/hr (0-15)
[2023-06-05 23:35] LABS: Basophils % 0.2 %; Eosinophils # 1.1 10^3/uL (0.0-0.8); Eosinophils % 12.6 %; Lymphocytes # 0.3 10^3/uL (0.8-4.8); Lymphocytes % 3.5 %; Mean Corpuscular HGB Conc 33.1 g/dL (30-55); Mean Corpuscular Hemoglobin 32.8 pg (27-33); Mean Corpuscular Volume 99.2 fl (85-98); Monocytes # 0.2 10^3/uL (0.2-0.9); Monocytes % 1.9 %; Neutrophils # 7.26 10^3/uL (1.8-7.7); Neutrophils % 81.5 %; Nucleated Red Blood Cells % 0 %; Platelet Count 271 10^3/cmm (157-399); Red Blood Count 3.93 10^6/uL (3.85-5.65); White Blood Count 8.91 10^3/uL (3.29-11.43)
[2023-06-05 23:50] LABS: Alanine Aminotransferase 22 U/L (0-33); Albumin Level 4.4 g/dL (3.5-5.2); Alkaline Phosphatase 119 U/L (35-105); Anion Gap 17.6 (5-19); Aspartate Amino Transferase 22 U/L (0-32); Blood Urea Nitrogen 20 mg/dL (6-20); C Reactive Protein 12.8 mg/L (0.0-4.9); Calcium 9.1 mg/dL (8.5-10.5); Carbon Dioxide 21 mmol/L (22-29); Chloride 103 mmol/L (98-107); Globulin 2.8 g/dL (1.3-4.6); Glomerular Filtration Rate 51.8 mL/min (90-130); Glucose 120 mg/dL (65-115); Osmolality Calculated 288 mOsm/kg (285-295); Potassium 4.6 mmol/L (3.5-5.1); Sodium 137 mmol/L (136-145); Total Bilirubin 0.4 mg/dL (0.15-1.2); Total Protein 7.2 g/dL (6.6-8.7)
[2023-06-06] MEDS: promethazine 25 mg Tablet PO (00:40)
[2023-06-06 00:43] VITALS: BP 120/83; PULSE 85; RESP 16; O2SAT 95
[2023-06-07 11:21] LABS: Lyme AB Screen <0.90 index
[2023-06-10 17:30] LABS: E. Chaffeensis AB IGG <1:64; E. Chaffeensis AB IGM <1:20
[2023-06-10 19:11] LABS: RMSF IGG NOT DETECTED; RMSF IGM NOT DETECTED
== END 2023-06-06 00:41 | disposition home or self-care (01) ==
PROVIDERS: Emergency Provider Nurse Practitioner Family; PCP Family Medicine
DX: S10.96XA Insect bite of unspecified part of neck, initial encounter (principal); W57.XXXA Bitten or stung by nonvenomous insect and other nonvenomous arthropods, initial encounter; R11.0 Nausea; G35 Multiple sclerosis
CPT/HCPCS: 36415; 80053; 85025; 85651; 86140; 86618; 86666; 86757; 99283; Q0169

== ENCOUNTER 2023-09-06 10:00 | Emergency (ER) | payer MEDICARE, SELFPAY ==
[2023-09-06 10:06] VITALS: BP 114/79; PULSE 73; RESP 18; TEMP 36.8; O2SAT 99
[2023-09-06 10:52] LABS: Basophils # 0.1 10^3/uL (0.0-0.1); Basophils % 1.7 %; Eosinophils # 1.1 10^3/uL (0.0-0.8); Eosinophils % 16.9 %; Hematocrit 38.8 % (36-47); Lymphocytes # 2.3 10^3/uL (0.8-4.8); Lymphocytes % 36.4 %; Mean Corpuscular HGB Conc 32.2 g/dL (30-55); Mean Corpuscular Hemoglobin 32.9 pg (27-33); Mean Corpuscular Volume 102.1 fl (85-98); Mean Platelet Volume 9.6 fL (7.4-10.4); Monocytes # 0.3 10^3/uL (0.2-0.9); Monocytes % 5.2 %; Neutrophils # 2.52 10^3/uL (1.8-7.7); Neutrophils % 39.6 %; Nucleated Red Blood Cells % 0 %; Platelet Count 302 10^3/cmm (157-399); Red Cell Distribution Width 12.1 % (12.1-15.1); White Blood Count 6.35 10^3/uL (3.29-11.43)
[2023-09-06 11:07] LABS: Alanine Aminotransferase 16 U/L (0-33); Albumin Level 4.1 g/dL (3.5-5.2); Alkaline Phosphatase 108 U/L (35-105); Anion Gap 17.7 (5-19); Aspartate Amino Transferase 19 U/L (0-32); Blood Urea Nitrogen 21 mg/dL (6-20); Calcium 9.2 mg/dL (8.5-10.5); Carbon Dioxide 22 mmol/L (22-29); Chloride 103 mmol/L (98-107); Globulin 3.2 g/dL (1.3-4.6); Glomerular Filtration Rate 51.8 mL/min (90-130); Glucose 81 mg/dL (65-115); Osmolality Calculated 288 mOsm/kg (285-295); Potassium 4.7 mmol/L (3.5-5.1); Sodium 138 mmol/L (136-145); Total Bilirubin 0.2 mg/dL (0.15-1.2); Total Protein 7.3 g/dL (6.6-8.7)
--- NOTE | 2023-09-06 11:25 | ECG_ITS ---
[facility] Test Date: 2023-09-06 Pat Name: Marleny Parekh Department: Room: Gender: Female Regional Environmental Manager: : 1970 Requested By: Benny Duncan Order Number: [id number] Iraj MD: Danial Mckinney M.D. Measurements Intervals Ary Rate: 66 P: 63 WY: 145 QRS: 13 QRSD: 90 T: 43 QT: 408 QTc: 427 Interpretive Statements SINUS RHYTHM NONSPECIFIC T-WAVE ABNORMALITY No previous ECG available for comparison Electronically Signed On 09-06-2023 21:28:48 CDT by Danial Mckinney M.D. [id number]
--- NOTE | 2023-09-06 11:54 | ED_ITS ---
HPI - General Adult 2 General: Chief complaint: General Medical Stated complaint: dr yeager, bp low Time Seen by Provider: 09/06/23 10:13 Source: patient Mode of arrival: ambulatory History of Present Illness: 52-year-old female presents to the emerg ency room with complaint of hypotension. She was at neurology office today being evaluated there is a weakness issue she had been having intermittent low blood pressures at home has not had any syncopal events associated with this. She has had in the past received IV fluids and recovered well. Dr. Damon had measured her blood pressure in the 70/40 range. But at times right ear it actually improved quite a bit. No recent medication changes. Relieving factors: none Exacerbating factors: none Associated symptoms: Deny chest pain, confusion, cough, diaphoresis, decreased appetite, dyspnea, fevers/chills, headache(s), malaise, nausea, rash, palpitations, seizures, short of breath, syncope, vomiting or weakness Review of Systems 2 Const: Denies: malaise or diaphoresis Card: Denies: chest pain, palpitations or syncope Resp: Denies: dyspnea GI: Denies: nausea or vomiting : Denies: dysuria, urinary frequency or urinary urgency Musc: Denies: neck pain or back pain Skin/Breast: Denies: rash Neuro: Denies: headache(s) or confusion PFSH ED 2 PFSH: Medical History Multiple sclerosis Undifferentiated connective tissue disease Hypothyroidism Foot pain Surgical History Status post colonoscopy (12/25/19) repeat in 5 years Social History Smoking and tobacco/nicotine status: never used tobacco/nicotine Physical Exam 2 Const: COMMON NORMALS: no acute distress GENERAL APPEARANCE: cooperative and comfortable ORIENTATION/CONSCIOUSNESS: Yes awake, Yes oriented to person, Yes oriented to place and Yes oriented to time HENMT: COMMON NORMALS: normocephalic, atraumatic and hearing grossly normal bilaterally HEAD & SCALP: normocephalic and atraumatic Resp: COMMON NORMALS: normal respiratory effort, No retractions, No use of accessory muscles and clear to auscultation bilaterally AUSCULTATION: clear to auscultation bilaterally Cardio: COMMON NORMALS: regular rate, regular rhythm and No murmurs present (Cardio) RATE: regular rate RHYTHM: regular rhythm GI: COMMON NORMALS: Soft to palpation and No hepatosplenomegaly present A USCULTATION: Yes normoactive bowel sounds PALPATION: Yes Soft to palpation, No Tenderness to palpation present (GI), No Guarding due to palpation present (GI) and Yes No hepatosplenomegaly present Extremity: COMMON NORMALS: normal to inspection, capillary refill normal, no clubbing, cyanosis or edema, no calf tenderness and no pedal edema Neuro: SENSORIUM/ORIENTATION: Yes oriented to person, Yes oriented to place and Yes oriented to time Skin: COMMON NORMALS: no rashes or lesions noted GENERAL SKIN EXAM: no rashes or lesions noted Course 2 Vital Signs: Vital signs: Vital Signs Temperature 98.2 F 09/06/23 10:06 Pulse Rate 67 09/06/23 12:57 Respiratory Rate 18 09/06/23 10:06 Blood Pressure 140/81 09/06/23 12:57 Pulse Oximetry 100 09/06/23 12:57 Oxygen Delivery Me thod Room Air 09/06/23 12:00 [facility] - General Adult Medical Decision Making Blood pressure is improved. She has still been taking her propranolol for migraine prophylaxis we will have her stop that and start with Topamax 25 nightly. She is feeling much better all of her symptoms are provide her blood pressure is improved did contact Dr. Damon and Dr. Gan to follow-up with her as an outpatient within the next week or 2 to adjust as needed for headache prophylaxis. Medical Records I reviewed the patient's medical records. Lab Data I reviewed the patient's lab results. 09/06/23 10:29 09/06/23 10:29 Laboratory Results WBC 6.35 10^3/uL (3.29-11.43) 09/06/23 10:29 RBC 3.80 10^6/uL (3.85-5.65) L 09/06/23 10:29 Hgb 12.50 g/dL (11.27-16.99) 09/06/23 10:29 Hct 38.8 % (36-47) 09/06/23 10:29 MCV 102.1 fl (85-98) H 09/06/23 10:29 MCH 32.9 pg (27-33) 09/06/23 10:29 MCHC 32.2 g/dL (30-55) 09/06/23 10:29 RDW 12.1 % (12.1-15.1) 09/06/23 10:29 Plt Count 302 10^3/cmm (157-399) 09/06/23 10:29 MPV 9.6 fL (7.4-10.4) 09/06/23 10:29 Neut % (Auto) 39.6 % 09/06/23 10:29 Lymph % (Auto) 36.4 % 09/06/23 10:29 Norman % (Auto) 5.2 % 09/06/23 10:29 Eos % (Auto) 16.9 % 09/06/23 10:29 Baso % (Auto) 1.7 % 09/06/23 10:29 Neut # (Auto) 2.52 10^3/uL (1.8-7.7) 09/06/23 10:29 Lymph # (Auto) 2.3 10^3/uL (0.8-4.8) 09/06/23 10:29 Norman # (Auto) 0.3 10^3/uL (0.2-0.9) 09/06/23 10:29 Eos # (Auto) 1.1 10^3/uL (0.0-0.8) H 09/06/23 10:29 Baso # (Auto) 0.1 10^3/uL (0.0-0.1) 09/06/23 10:29 Nucleated RBC % (auto) 0 % 09/06/23 10:29 Nucleated RBCs # 0.0 /100WBC 09/06/23 10:29 Sodium 138 mmol/L (136-145) 09/06/23 10:29 Potassium 4.7 mmol/L (3.5-5.1) 09/06/23 10: Chloride 103 mmol/L (98-107) 09/06/23 10:29 Carbon Dioxide 22 mmol/L (22-29) 09/06/23 10:29 Anion Gap 17.7 (5-19) 09/06/23 10:29 BUN 21 mg/dL (6-20) H 09/06/23 10:29 Creatinine 1.1 mg/dL (0.5-0.9) H 09/06/23 10:29 GFR Calculation 51.8 mL/min (90-130) L 09/06/23 10: Glucose 81 mg/dL (65-115) 09/06/23 10:29 Calculated Osmolality 288 mOsm/kg (285-295) 09/06/23 10:29 Calcium 9.2 mg/dL (8.5-10.5) 09/06/23 10:29 Magnesium 2.0 mg/dL (1.7-2.3) 09/06/23 10:29 Total Bilirubin 0.2 mg/dL (0.15-1.2) 09/06/23 10: AST 19 U/L (0-32) 09/06/23 10: ALT 16 U/L (0-33) 09/06/23 10: Alkaline Phosphatase 108 U/L (35-105) H 09/06/23 10:29 Total Protein 7.3 g/dL (6.6-8.7) 09/06/23 10:29 Albumin 4.1 g/dL (3.5-5.2) 09/06/23 10: Globulin 3.2 g/dL (1.3-4.6) 09/06/23 10:29 All radiology interpretation(s) finalized by discharge Discharge Plan Discharge Patient Disposition: Home Clinical Impression: Hypotension, Migraine Condition: Stable Prescriptions: New Topamax 25 mg tablet 25 mg PO DAILY 30 Days Qty: 30 0RF Discontinued propranolol 10 mg tablet 10 mg PO BID No Action epinephrine [EpiPen] 0.3 mg/0.3 mL auto-injector 0.3 mg IM Q10M PRN (Reason: Anaphylaxis) Rx Instructions: for 2 doses (DME) pen needle, diabetic [Comfort EZ Pen [place]] 32 gauge x 3/16 needle See Rx Instructions .Route Qty: 100 0RF Rx Instructions: As directed May substitute sumatriptan succinate 100 mg tablet See Rx Instructions .ROUTE .COMPLEX Qty: 9 11RF Dose Instruction: TAKE 1/2 TO 1 TABLET BY MOUTH EVERY 2 HOURS NEEDED FOR HEADACHES(MAX 2 IN 24 HOURS) Rx Instructions: TAKE 1/2 TO 1 TABLET BY MOUTH EVERY 2 HOURS NEEDED FOR HEADACHES(MAX 2 IN 24 HOURS) amitriptyline 25 mg tablet See Rx Instructions .ROUTE .COMPLEX Qty: 60 11RF Dose Instruction: TAKE 1-4 TABLETS BY MOUTH EVERY DAY AT NIGHT Rx Instructions: TAKE 1-4 TABLETS BY MOUTH EVERY EVENING. clonazepam 2 mg tablet 2 mg PO BID Qty: 60 4RF meloxicam 7.5 mg tablet 7.5 mg PO DAILY levothyroxine 125 mcg tablet 125 mcg PO DAILY gabapentin 100 mg capsule 100 mg PO TID hydroxychloroquine 200 mg tablet 200 mg PO BID fluoxetine 20 mg capsule 20 mg PO DAILY bupropion HCl 300 mg tablet extended release 24 hr 300 mg PO DAILY Victoza 3-Mike 0.6 mg/0.1 mL (18 mg/3 mL) pen injector 1.8 mg SUBCUT DAILY Discharge Orders: Discharge ED (Routine); Ordered 09/06/23 Ordered By: Benny Flores Referrals: Antonio Nash MD [Primary Care Provider] - Discharge Diet: Usual diet Patient Instructions: Opioid Safety, Pain Management Activity Restrictions/Additional Instructions: Thank you for choosing [facility] for your healthcare needs today. It is very important that you follow up as instructed or that you return to the Emergency Department should you have concerns or if your condition changes or worsens in any way. You were seen today for an episode of low blood pressure. Your blood pressure improved by the time you arrived your laboratory tests were normal. Recommend you stop the propranolol instead take Topamax 1 tablet each night for headache prophylaxis. Follow-up with Dr. Gan within the next week. Coding Level of Care Code ED [employer] for Ankit Willis
[2023-09-06] MEDS: sodium chloride 0.9% 1,000 ML 999 ML IV (11:57)
[2023-09-06 12:00] VITALS: BP 117/83; PULSE 64; O2SAT 100
[2023-09-06 12:01] VITALS: BP 117/83; BP 127/81; BP 146/76; PULSE 62; PULSE 64
[2023-09-06 12:57] VITALS: BP 140/81; PULSE 67; O2SAT 100
== END 2023-09-06 12:59 | disposition home or self-care (01) ==
PROVIDERS: Emergency Provider Family Medicine; PCP Family Medicine
DX: I95.9 Hypotension, unspecified (principal); G43.909 Migraine, unspecified, not intractable, without status migrainosus; G35 Multiple sclerosis; G37.9 Demyelinating disease of central nervous system, unspecified; R93.0 Abnormal findings on diagnostic imaging of skull and head, not elsewhere classified; R20.2 Paresthesia of skin; M79.601 Pain in right arm; M79.602 Pain in left arm; M79.605 Pain in left leg; M79.604 Pain in right leg
CPT/HCPCS: 36415; 80053; 83735; 85025; 93005; 96360; 99203; 99284; J7030

== ENCOUNTER 2023-09-20 00:25 | Emergency (ER) | payer MEDICARE, SELFPAY ==
[2023-09-20 00:31] VITALS: BP 102/68; PULSE 99; RESP 16; TEMP 36.9; O2SAT 95; BMI 27.4
[2023-09-20 00:34] VITALS: BP 104/66; PULSE 97; RESP 20; TEMP 36.7; O2SAT 98
--- NOTE | 2023-09-20 00:37 | XRR_ITS ---
PROCEDURE INFORMATION: Exam: XR Chest Exam date and time: 09/20/2023 12:39 AM Age: 53 years old Clinical indication: Patient HX: Fever with general maliase TECHNIQUE: Imaging protocol: Radiologic exam of the chest. Views: 1 view. COMPARISON: CT chest w con* [id number] 11/03/2020 11:22 AM FINDINGS: Lungs: The lungs are adequately expanded. No focal consolidations or pulmonary edema. Pleural spaces: No pleural effusions or pneumothorax. Heart/Mediastinum: Unremarkable. No cardiomegaly. Bones/joints: Unremarkable. XR/XR chest 1V portable [id number] IMPRESSION: No acute pulmonary findings.
[2023-09-20 01:01] LABS: Basophils # 0.1 10^3/uL (0.0-0.1); Basophils % 0.6 %; Eosinophils # 1.2 10^3/uL (0.0-0.8); Eosinophils % 14.1 %; Hematocrit 37.9 % (36-47); Lymphocytes # 0.5 10^3/uL (0.8-4.8); Lymphocytes % 5.5 %; Mean Corpuscular HGB Conc 33.2 g/dL (30-55); Mean Corpuscular Hemoglobin 33.2 pg (27-33); Mean Corpuscular Volume 99.7 fl (85-98); Mean Platelet Volume 9.2 fL (7.4-10.4); Monocytes # 0.2 10^3/uL (0.2-0.9); Monocytes % 2.1 %; Neutrophils # 6.59 10^3/uL (1.8-7.7); Neutrophils % 77.5 %; Nucleated Red Blood Cells % 0 %; Platelet Count 244 10^3/cmm (157-399); Red Cell Distribution Width 12.3 % (12.1-15.1); White Blood Count 8.51 10^3/uL (3.29-11.43)
[2023-09-20 01:04] VITALS: PULSE 95; RESP 17; O2SAT 97
--- NOTE | 2023-09-20 01:12 | ED_ITS ---
HPI - Nausea/Vomiting/Diarrhea 2 General: Chief complaint: Nausea/Vomiting/Diarrhea Stated complaint: N\V Body Aches Time Seen by Provider: 09/20/23 00:29 History of Present Illness: Patient presents to the ER after feeling feverish with a cough and having nausea and vomiting and bodyaches at home. This all started within the last 24 hours. Patient that she may have COVID. But she has not been around any known sick contacts The only thing patient has eaten today as some yogurt. Patient is having diffuse bodyaches but no point tenderness. Review of Systems 2 General: Reports: 10 or more systems reviewed and unremarkable except in HPI and below PFSH ED 2 PFSH: Medical History Multiple sclerosis Undifferentiated connective tissue disease Hypothyroidism Foot pain Surgical History Status post colonoscopy (12/25/19) repeat in 5 years Social History Smoking and tobacco/nicotine status: never used tobacco/nicotine Physical Exam 2 Const: COMMON NORMALS: no acute distress, average body habitus, patient oriented x3, no limitations, healthy appearing, alert and well nourished HENMT: COMMON NORMALS: normocephalic, atraumatic, hearing grossly normal bilaterally, external ears normal, Normal external nose present and moist oral mucous membranes HEAD & SCALP: normocephalic and atraumatic NOSE: Normal external nose present EXTERNAL EAR: Yes external ears normal Neck/C-Spine: COMMON NORMALS: full ROM, no lymphadenopathy, supple, no meningeal signs, no JVD and Thyroid normal THYROID: Thyroid normal Chest: COMMONS NORMALS: normal inspection of the chest and normal palpation of entire chest wall Resp: COMMON NORMALS: normal respiratory effort, No retractions, No use of accessory muscles and clear to auscultation bilaterally AUSCULTATION: clear to auscultation bilaterally Cardio: COMMON NORMALS: no JVD, regular rate, regular rhythm, S1 normal heart sound present, S2 normal heart sound present, No gallops present (Cardio), No clicks present (Cardio), No murmurs present (Cardio) and No rub (Cardio) R ATE: regular rate RHYTHM: regular rhythm HEART SOUNDS: S1 normal heart sound present and S2 normal heart sound present GI: COMMON NORMALS: Normal to inspection, nondistended, normoactive bowel sounds present, Soft to palpation, non-tender, No hepatosplenomegaly present and no masses PALPATION: Yes Soft to palpation and Yes No hepatosplenomegaly present Neuro: COMMON NORMALS: patient oriented x3 SENSORIUM/ORIENTATION: Yes alert MENINGEAL SIGNS: Yes no meningeal signs Course 2 Vital Signs: Vital signs: Vital Signs Temperature 98.0 F 09/20/23 00:34 Pulse Rate 95 09/20/23 01:04 Respiratory Rate 17 09/20/23 01:04 Blood Pressure 104/66 09/20/23 00:34 Pulse Oximetry 97 09/20/23 01:04 Oxygen Delivery Me thod Room Air 09/20/23 01:04 MDM - Nausea/Vomiting/Diarrhea Medical Decision Making Lab work was obtained including CBC CMP influenza and COVID swabs as well as chest x-ray, all of which was essentially benign except creatinine was slightly elevated at 1.3 were in the past patient is been 1.1. Patient be bolused 1 L normal saline and discharged to follow-up with her PCP. Differential Diagnosis Likely gastroenteritis and dehydration Medical Records I reviewed the patient's medical records. Lab Data I reviewed the patient's lab results. 09/20/23 00:55 09/20/23 00:55 Radiology Impressions Chest X-Ray 09/20/23 00:37 IMPRESSION: No acute pulmonary findings. Laboratory Results WBC 8.51 10^3/uL (3.29-11.43) 09/20/23 00:55 RBC 3.80 10^6/uL (3.85-5.65) L 09/20/23 00:55 Hgb 12.60 g/dL (11.27-16.99) 09/20/23 00:55 Hct 37.9 % (36-47) 09/20/23 00:55 MCV 99.7 fl (85-98) H 09/20/23 00:55 MCH 33.2 pg (27-33) H 09/20/23 00:55 MCHC 33.2 g/dL (30-55) 09/20/23 00:55 RDW 12.3 % (12.1-15.1) 09/20/23 00:55 Plt Count 244 10^3/cmm (157-399) 09/20/23 00:55 MPV 9.2 fL (7.4-10.4) 09/20/23 00:55 Neut % (Auto) 77.5 % 09/20/23 00:55 Lymph % (Auto) 5.5 % 09/20/23 00:55 Mccreary % (Auto) 2.1 % 09/20/23 00:55 Eos % (Auto) 14.1 % 09/20/23 00:55 Baso % (Auto) 0.6 % 09/20/23 00:55 Neut # (Auto) 6.59 10^3/uL (1.8-7.7) 09/20/23 00:55 Lymph # (Auto) 0.5 10^3/uL (0.8-4.8) L 09/20/23 00:55 Mccreary # (Auto) 0.2 10^3/uL (0.2-0.9) 09/20/23 00:55 Eos # (Auto) 1.2 10^3/uL (0.0-0.8) H 09/20/23 00:55 Baso # (Auto) 0.1 10^3/uL (0.0-0.1) 09/20/23 00:55 Nucleated RBC % (auto) 0 % 09/20/23 00:55 Nucleated RBCs # 0.0 /100WBC 09/20/23 00:55 Sodium 136 mmol/L (136-145) 09/20/23 00:55 Potassium 4.8 mmol/L (3.5-5.1) 09/20/23 00:55 Chloride 105 mmol/L (98-107) 09/20/23 00:55 Carbon Dioxide 19 mmol/L (22-29) L 09/20/23 00:55 Anion Gap 16.8 (5-19) 09/20/23 00:55 BUN 22 mg/dL (6-20) H 09/20/23 00:55 Creatinine 1.3 mg/dL (0.5-0.9) H 09/20/23 00:55 GFR Calculation 42.5 mL/min (90-130) L 09/20/23 00:55 Glucose 139 mg/dL (65-115) H 09/20/23 00:55 Calculated Osmolality 288 mOsm/kg (285-295) 09/20/23 00:55 Calcium 9.0 mg/dL (8.5-10.5) 09/20/23 00:55 Magnesium 1.9 mg/dL (1.7-2.3) 09/20/23 00:55 Total Bilirubin 0.3 mg/dL (0.15-1.2) 09/20/23 00:55 AST 25 U/L (0-32) 09/20/23 00:55 ALT 20 U/L (0-33) 09/20/23 00:55 Alkaline Phosphatase 128 U/L (35-105) H 09/20/23 00:55 Total Protein 7.3 g/dL (6.6-8.7) 09/20/23 00:55 Albumin 3.9 g/dL (3.5-5.2) 09/20/23 00:55 Globulin 3.4 g/dL (1.3-4.6) 09/20/23 00:55 Influenza Type A Ag Negative (Negative) 09/20/23 00:55 Influenza Type B Ag Negative (Negative) 09/20/23 00:55 SARS-CoV-2 Ag (Rapid) negative (Negative) 09/20/23 00:55 All radiology interpretation(s) finalized by discharge Discharge Plan Discharge Patient Disposition: Home Clinical Impression: Gastroenteritis, Dehydration Condition: Stable Prescriptions: No Action epinephrine [EpiPen] 0.3 mg/0.3 mL auto-injector 0.3 mg IM Q10M PRN (Reason: Anaphylaxis) Rx Instructions: for 2 doses (DME) pen needle, diabetic [Comfort EZ Pen [place]] 32 gauge x 3/16 needle See Rx Instructions .Route Qty: 100 0RF Rx Instructions: As directed May substitute sumatriptan succinate 100 mg tablet See Rx Instructions .ROUTE .COMPLEX Qty: 9 11RF Dose Instruction: TAKE 1/2 TO 1 TABLET BY MOUTH EVERY 2 HOURS NEEDED FOR HEADACHES(MAX 2 IN 24 HOURS) Rx Instructions: TAKE 1/2 TO 1 TABLET BY MOUTH EVERY 2 HOURS NEEDED FOR HEADACHES(MAX 2 IN 24 HOURS) amitriptyline 25 mg tablet See Rx Instructions .ROUTE .COMPLEX Qty: 60 11RF Dose Instruction: TAKE 1-4 TABLETS BY MOUTH EVERY DAY AT NIGHT Rx Instructions: TAKE 1-4 TABLETS BY MOUTH EVERY EVENING. clonazepam 2 mg tablet 2 mg PO BID Qty: 60 4RF meloxicam 7.5 mg tablet 7.5 mg PO DAILY levothyroxine 125 mcg tablet 125 mcg PO DAILY gabapentin 100 mg capsule 100 mg PO TID hydroxychloroquine 200 mg tablet 200 mg PO BID fluoxetine 20 mg capsule 20 mg PO DAILY bupropion HCl 300 mg tablet extended release 24 hr 300 mg PO DAILY Victoza 3-Mike 0.6 mg/0.1 mL (18 mg/3 mL) pen injector 1.8 mg SUBCUT DAILY Topamax 25 mg tablet 25 mg PO DAILY 30 Days Qty: 30 0RF Discharge Orders: Discharge ED (Routine); Ordered 09/20/23 Ordered By: Kameron Hampton Referrals: Antonio Nash MD [Primary Care Provider] - 1 week Patient Instructions: Acute Nausea and Vomiting (ED), Dehydration (ED) Activity Restrictions/Additional Instructions: Your labs in ER were unremarkable other than showing you were a little bit dehydrated. Please drink plenty of fluids. Please follow-up with your family practice physician in the next 7 to 10 days for further evaluation and treatment as needed. Thank you for choosing [facility] for your healthcare needs today. Please realize that you were seen in the emergency department and that we are providing you with an emergency medical screening exam and this may not be a complete and all exclusive of all testing and/or medical workup we may need to determine your element or severity of your illness. It is very important that you follow-up as instructed with your primary care provider or specialist for the additional evaluation and to discuss your medical treatment plan. You may return to the emergency department should you have concerns or if your condition changes or worsens in any way. Coding Level of Care Code ED [employer] for Ankit Willis
[2023-09-20 01:16] LABS: Alanine Aminotransferase 20 U/L (0-33); Albumin Level 3.9 g/dL (3.5-5.2); Alkaline Phosphatase 128 U/L (35-105); Anion Gap 16.8 (5-19); Aspartate Amino Transferase 25 U/L (0-32); Blood Urea Nitrogen 22 mg/dL (6-20); Carbon Dioxide 19 mmol/L (22-29); Chloride 105 mmol/L (98-107); Creatinine Clr Calc Pharmacy 47.7421; Globulin 3.4 g/dL (1.3-4.6); Glomerular Filtration Rate 42.5 mL/min (90-130); Glucose 139 mg/dL (65-115); Magnesium 1.9 mg/dL (1.7-2.3); Osmolality Calculated 288 mOsm/kg (285-295); Potassium 4.8 mmol/L (3.5-5.1); Sodium 136 mmol/L (136-145); Total Bilirubin 0.3 mg/dL (0.15-1.2); Total Protein 7.3 g/dL (6.6-8.7)
[2023-09-20 01:19] LABS: SARS Covid-2 Antigen negative (Negative)
[2023-09-20 01:32] LABS: Influenza A by IFA Negative (Negative); Influenza B by IFA Negative (Negative)
[2023-09-20] MEDS: sodium chloride 0.9% 1,000 ML 999 ML IV (01:40)
[2023-09-20 02:02] VITALS: PULSE 79; RESP 21; O2SAT 94
[2023-09-20 02:24] VITALS: BP 96/58; PULSE 76; RESP 19
== END 2023-09-20 02:51 | disposition home or self-care (01) ==
PROVIDERS: Emergency Provider Emergency Medicine; PCP Family Medicine
DX: K52.9 Noninfective gastroenteritis and colitis, unspecified (principal); E86.0 Dehydration; Z11.52 Encounter for screening for COVID-19; G35 Multiple sclerosis
CPT/HCPCS: 71045; 80053; 83735; 85025; 87426; 87804; 99284; J7030

== ENCOUNTER 2023-09-26 11:14 | Outpatient (CLI) | payer MEDICARE, SELFPAY ==
--- NOTE | 2023-09-26 11:45 | USCV_ITS ---
Marleny Parekh Age: 53 Gender: F : 1970 Exam Date: 09/26/2023 11:21 Ordering Phys: Lucho Damon MD Technologist: CT Exam Location: [facility] [place] Indication: Stenosis Risk Factors: Previous Vascular Surgery: Right Brachial BP: / Left Brachial BP: / Right Left Velocity (cm/s) Spectral Plaque Velocity (cm/s) Spectral Plaque Syst/Diast Broadening Syst/Diast Broadening 109.30/27.20 Prox CCA 133.00/ 40.00 112.70/34.50 Mid CCA 111.90/ 35.70 106.00/32.30 Distal CCA 82.30 / 25.20 106.00/28.10 Prox ICA 70.90 / 25.20 93.90/ 23.40 Mid ICA 83.00 / 28.50 62.40/ 5.20 Distal ICA 62.90 / 24.20 83.50 ECA 39.40 1.00 ICA/CCA 1.00 Antegrade Vertebral Antegrade 49.60/ 9.80 cm/s 41.30/ 15.20 cm/s Tri Subclavian Tri 122.8 120.8 0 0 FINDINGS Comparison: none available. No significant elevation of systolic or diastolic velocities. Waveforms are normal. No significant amount of calcified plaque or intimal thickening identified. CONCLUSIONS Normal carotid doppler ultrasound. Dr. Leslee Mesa DO (Electronically Signed) Final Date: 26 September 2023 14:30 S
[2023-09-26 13:07] LABS: Glomerular Filtration Rate 51.6 mL/min (90-130); Homocysteine 16.41 umol/l (0-15); Magnesium 2.2 mg/dL (1.7-2.3)
[2023-09-26 13:24] LABS: 25 Hydroxy Vitamin D 23 ng/mL (30-100); Vitamin B12 1099 pg/mL (232-1245)
[2023-09-26 13:28] LABS: Folate Level 8.3 ng/mL (4.8-37.3)
[2023-09-29 13:05] LABS: Methylmalonic Acid 127 nmol/L (55-335)
== END 2023-09-26 11:15 | disposition home or self-care (01) ==
LOC: RAD 11:16
PROVIDERS: PCP Family Medicine; Visit Provider Psychiatry & Neurology Neurology
DX: E53.8 Deficiency of other specified B group vitamins (principal); I95.9 Hypotension, unspecified; R20.2 Paresthesia of skin; R93.0 Abnormal findings on diagnostic imaging of skull and head, not elsewhere classified; G37.9 Demyelinating disease of central nervous system, unspecified; M79.604 Pain in right leg; M79.605 Pain in left leg; R29.818 Other symptoms and signs involving the nervous system; E55.9 Vitamin D deficiency, unspecified; M35.9 Systemic involvement of connective tissue, unspecified; G63 Polyneuropathy in diseases classified elsewhere; G35 Multiple sclerosis
CPT/HCPCS: 36415; 82306; 82565; 82607; 82746; 83090; 83735; 83921; 93880

== ENCOUNTER 2023-09-27 08:08 | Outpatient (CLI) | payer MEDICARE, SELFPAY ==
--- NOTE | 2023-09-27 08:00 | MR_ITS ---
WS: [id number] MRI HEAD WITH CONTRAST TECHNIQUE: Sagittal T1, T2 axial, T2 axial FLAIR, axial susceptibility weighted imaging, axial diffus ion weighted images, and coronal T2 images were obtained. Pre and post-T1 axial and post T1 coronal i mages. ADC and FSPGR images. CLINICAL INFORMATION: G35 - Multiple sclerosis COMPARISON: MRI 2019 FINDINGS: No evidence of restricted diffusion to suggest acute ischemia. Ventricular system and basal cisterns are patent. Patchy supratentorial white matter changes compatible with history of demyelinating disea se. Patchy white matter changes in the parvez similar to previous. Minimal progression of disease mitchell red to previous considering differences in technique. No enhancing lesions to indicate active disease . Mild parenchymal volume loss slightly progressed compared to previous. No significant T1 hypointense lesion load. No significant atrophy of the corpus callosum. Normal posterior fossa. Normal vascular flow voids at the skull base. No extra-axial fluid collection s. Mild mucosal thickening in the paranasal sinuses. Mastoid air cells are well aerated. Normal poste rior nasopharynx. No hemosiderin on the susceptibly weighted images. MR/MR head wo/w con [id number] IMPRESSION: 1. Mild patchy supratentorial white matter changes compatible with demyelinati ng disease. Minimal progression of disease compared to previous. Stable patchy white matter changes in the parvez. 2. No enhancing lesions to indicate active disease. 3. No significant T1 hypointense lesion load. Mild parenchymal volume loss sli ghtly progressed. 4. No significant atrophy of the corpus callosum.
--- NOTE | 2023-09-27 08:45 | MR_ITS ---
WS: [id number] MR CERVICAL SPINE WO/W COMPARISON: 2018 HISTORY: G35 - Multiple sclerosis TECHNIQUE: Sagittal T1, T2 and T2 inversion recovery; axial T2, T2 gradient and fiesta. Post gadolini um imaging with fat saturation technique. FINDINGS:Straightening of the normal cervical lordosis. No high grade central canal narrowing. Cord s ignal is normal. No demyelinating lesions within the cervical cord. No cord atrophy. No abnormal gado linium enhancement. Patchy lesions in the parvez discussed on the MRI. C2-3: Mild facet arthropathy. Spinal canal and foramina are patent. C3-4: Mild facet arthropathy. Mild bilateral bony foraminal narrowing. Spinal canal is patent. C4-5: Minimal disc bulging. Mild bilateral bony foraminal narrowing LEFT greater than RIGHT. Mild fac et arthropathy. C5-6: Disc osteophyte complex with endplate ridging. Moderate RIGHT and mild LEFT foraminal narrowing . Mild facet arthropathy. C6-7: Disc osteophyte complex with endplate ridging. Moderate LEFT and mild RIGHT bony foraminal narr owing. Moderate facet arthropathy. C7-T1: Mild LEFT bony foraminal narrowing. Spinal canal and RIGHT foramen are patent. Small central protrusion at T2-3 appears progressed. MR/MR cervical spine wo/w [id number] IMPRESSION: 1. Straightening of the normal cervical lordosis. No high-grade central canal narrowing. 2. No demyelinating lesions in the cervical cord. No enhancing lesions. No cor d atrophy. 3. Small LEFT paracentral protrusion at T2-3 appears progressed compared to pr evious. 4. Moderate bony foraminal narrowing worse at LEFT C4-5, RIGHT C5-6 and LEFT C 6-7. 5. No other remarkable changes compared to previous.
[2023-09-27] MEDS: gadobenate dimeglumine 20 mL vial 15 ML IV (09:43)
== END 2023-09-27 08:09 | disposition home or self-care (01) ==
LOC: RAD 08:08
PROVIDERS: PCP Family Medicine; Visit Provider Psychiatry & Neurology Neurology
DX: G35 Multiple sclerosis (principal); M51.24 Other intervertebral disc displacement, thoracic region; M99.61 Osseous and subluxation stenosis of intervertebral foramina of cervical region; I95.9 Hypotension, unspecified; R29.818 Other symptoms and signs involving the nervous system
CPT/HCPCS: 70553; 72156; A9577

== ENCOUNTER 2023-10-09 10:51 | Emergency (ER) | payer MEDICARE, SELFPAY ==
[2023-10-09 10:58] VITALS: BP 132/83; PULSE 94; RESP 20; TEMP 36.8; O2SAT 99; BMI 27.8
--- NOTE | 2023-10-09 11:05 | ED_ITS ---
HPI - Allergic Reaction General: Chief complaint: Allergic Reaction Stated complaint: allergic reaction Time Seen by Provider: 10/09/23 11:01 Source: patient Mode of arrival: ambulatory Limitations: no limitations History of Present Illness: HPI narrative: 53-year-old female states she is very al lergic to stinging insect she states she felt a sting on her right leg developed a small rash there and became concerned she has had allergic reactions in the past she did give her dose of her EpiPen 45 minutes ago. She has no rash currently to her body just a small rash at the side she denies any vomiting has some mild dyspnea she is in no distress here Associated symptoms: Deny abdominal pain, nausea or vomiting Related Data Home Medications Medication Instructions Recorded Confirmed epinephrine 0.3 mg/0.3 mL 0.3 mg IM Q10M PRN Anaphylaxis 11/13/19 09/26/23 injection, auto-injector (EpiPen) bupropion HCl 300 mg 24 hr tablet, 300 mg PO DAILY 09/06/23 09/06/23 extended release fluoxetine 20 mg capsule 20 mg PO DAILY 09/06/23 09/06/23 gabapentin 100 mg capsule 100 mg PO TID 09/06/23 09/06/23 hydroxychloroquine 200 mg tablet 200 mg PO BID 09/06/23 09/06/23 levothyroxine 125 mcg tablet 125 mcg PO DAILY 09/06/23 09/06/23 Previous Rx's Medication Instructions Recorded sumatriptan succinate 100 mg tablet See Rx Instructions .Route 01/14/23 .COMPLEX #9 tabs amitriptyline 25 mg tablet See Rx Instructions .Route 03/01/23 .COMPLEX #60 tabs pen needle, diabetic 32 gauge x #100 ea 05/13/2305/06 (Comfort EZ [place]) clonazepam 2 mg tablet 2 mg PO BID #60 tabs 09/08/23 meloxicam 7.5 mg tablet See Rx Instructions .Route 09/20/23 .COMPLEX #90 tabs liraglutide 0.6 mg/0.1 mL (18 mg/3 See Rx Instructions .Route 09/22/23 mL) subcutaneous pen injector .COMPLEX #9 mL (Victoza 2-Mike) cholecalciferol (vitamin D3) 1,250 50,000 unit PO .COMPLEX #14 caps 09/27/23 mcg (50,000 unit) capsule Allergies Allergy/AdvReac Type Severity Reaction Status Date / Time Penicillins Allergy ALGY-Anaphy Verified 09/26/23 07:36 laxis venom-honey bee Allergy ALGY-Anaphy Verified 09/26/23 07:36 laxis stinging insects Allergy Severe trouble Uncoded 09/26/23 07:47 breathing Review of Systems Const: Denies: fever(s), chills, body aches or change in appetite ENMT: Denies: throat pain or dental pain Card: Denies: chest pain Resp: Denies: non-productive cough or wheezing GI: Denies: abdominal pain, nausea, vomiting or diarrhea Musc: Denies: neck pain or back pain Skin/Breast: Reports: rash Neuro: Denies: headache(s) PFSH ED PFSH: Medical History Multiple sclerosis Undifferentiated connective tissue disease Hypothyroidism Foot pain Surgical History Status post colonoscopy (12/25/19) repeat in 5 years Social History Smoking and tobacco/nicotine status: never used tobacco/nicotine Physical Exam Const: COMMON NORMALS: no acute distress, patient oriented x3 and healthy appearing HENMT: COMMON NORMALS: normocephalic and atraumatic HEAD & SCALP: normocephalic and atraumatic Eye: COMMON NORMALS: conjunctivae normal CONJUNCTIVA: Yes conjunctivae normal Neck/C-Spine: COMMON NORMALS: full ROM and supple Chest: COMMONS NORMALS: normal inspection of the chest Resp: COMMON NORMALS: normal respiratory effort, No retractions, No use of accessory muscles and clear to auscultation bilaterally AUSCULTATION: clear to auscultation bilaterally Cardio: COMMON NORMALS: regular rate RATE: regular rate Extremity: COMMON NORMALS: full ROM NARRATIVE EXTREMITY EXAM: Insect sting noted to right posterior thigh slight erythema around it no rash elsewhere Neuro: COMMON NORMALS: patient oriented x3, moves all extremities and no focal motor deficits Psych: COMMON NORMALS: mental status grossly normal, Normal thought process present and cooperative THOUGHT PROCESS: Normal thought process present Skin: COMMON NORMALS: no rashes or lesions noted and no wounds GENERAL SKIN EXAM: no rashes or lesions noted Course Vital Signs: Vital signs: Vital Signs Temperature 98.3 F 10/09/23 10:58 Pulse Rate 76 10/09/23 11:53 Respiratory Rate 18 10/09/23 11:53 Blood Pressure 119/81 10/09/23 11:53 Pulse Oximetry 100 10/09/23 11:53 Oxygen Delivery Me thod Room Air 10/09/23 11:53 MDM - Allergic Reaction Medical Decision Making Patient presents here with a allergic reaction from insect sting she has been well-appearing here no signs of systemic response she is stable for discharge she is take Benadryl at home return if worsening she understands agrees to plan Medical Records I reviewed the patient's medical records. No radiology studies performed this visit Discharge Plan Discharge Patient Disposition: Home Clinical Impression: Allergic reaction Condition: Stable Prescriptions: No Action epinephrine [EpiPen] 0.3 mg/0.3 mL auto-injector 0.3 mg IM Q10M PRN (Reason: Anaphylaxis) Rx Instructions: for 2 doses (DME) pen needle, diabetic [Comfort EZ [place]] 32 gauge x 3/16 needle See Rx Instructions .Route Qty: 100 0RF Rx Instructions: As directed May substitute sumatriptan succinate 100 mg tablet See Rx Instructions .ROUTE .COMPLEX Qty: 9 11RF Dose Instruction: TAKE 1/2 TO 1 TABLET BY MOUTH EVERY 2 HOURS NEEDED FOR HEADACHES(MAX 2 IN 24 HOURS) Rx Instructions: TAKE 1/2 TO 1 TABLET BY MOUTH EVERY 2 HOURS NEEDED FOR HEADACHES(MAX 2 IN 24 HOURS) amitriptyline 25 mg tablet See Rx Instructions .ROUTE .COMPLEX Qty: 60 11RF Dose Instruction: TAKE 1-4 TABLETS BY MOUTH EVERY DAY AT NIGHT Rx Instructions: TAKE 1-4 TABLETS BY MOUTH EVERY EVENING. clonazepam 2 mg tablet 2 mg PO BID Qty: 60 4RF meloxicam 7.5 mg tablet See Rx Instructions .ROUTE .COMPLEX Qty: 90 3RF Dose Instruction: TAKE 1 TABLET BY MOUTH DAILY Rx Instructions: TAKE 1 TABLET BY MOUTH DAILY liraglutide [Victoza 2-Mike] 0.6 mg/0.1 mL (18 mg/3 mL) pen injector See Rx Instructions .ROUTE .COMPLEX Qty: 9 0RF Dose Instruction: INJECT 1.8mg SUBCUTANEOUSLY DAILY Rx Instructions: INJECT 1.8mg SUBCUTANEOUSLY DAILY cholecalciferol (vitamin D3) 1,250 mcg (50,000 unit) capsule 50,000 unit PO .COMPLEX Qty: 14 4RF Rx Instructions: 50,000 units orally weekly; 1 pill a week levothyroxine 125 mcg tablet 125 mcg PO DAILY gabapentin 100 mg capsule 100 mg PO TID hydroxychloroquine 200 mg tablet 200 mg PO BID fluoxetine 20 mg capsule 20 mg PO DAILY bupropion HCl 300 mg tablet extended release 24 hr 300 mg PO DAILY Discharge Orders: Discharge ED (Routine); Ordered 10/09/23 Ordered By: Alo Hernandez Referrals: Antonio Nash MD [Primary Care Provider] - 4-7 days Discharge Diet: Advance as tolerated Discharge Activity: Resume usual activity Patient Instructions: General Allergic Reaction (ED) Coding Level of Care Code ED Sales Applications Engineer for Ankit Willis
[2023-10-09] MEDS: dexamethasone 10 mg/mL INJ IM (11:47)
[2023-10-09] MEDS: diphenhydrAMINE 50 mg/mL SDV 1mL IM (11:48)
[2023-10-09 11:53] VITALS: BP 119/81; PULSE 76; RESP 18; O2SAT 100
[2023-10-09 12:53] VITALS: BP 125/88; PULSE 72; RESP 18; TEMP 36.8; O2SAT 97
== END 2023-10-09 12:55 | disposition home or self-care (01) ==
PROVIDERS: Emergency Provider Emergency Medicine; PCP Family Medicine
DX: T63.481A Toxic effect of venom of other arthropod, accidental (unintentional), initial encounter (principal); G35 Multiple sclerosis
CPT/HCPCS: 96372; 99284; J1100; J1200

== ENCOUNTER → 2023-10-27 10:31 | Outpatient (BNVA) | payer MEDICARE, SELFPAY | PROVIDERS: PCP Family Medicine; Visit Provider Clinical Nurse Specialist Adult Health | DX: R35.0 Frequency of micturition (principal) | CPT/HCPCS: 81000 ==

== ENCOUNTER 2023-11-10 11:57 | Outpatient (CLI) | payer MEDICARE, SELFPAY ==
[2023-11-10 12:41] LABS: Free T4 Free Thyroxine 1.45 ng/dL (0.82-1.77); Thyroid Stimulating Hormone 2.42 uIU/mL (0.27-4.20)
== END 2023-11-10 11:58 | disposition home or self-care (01) ==
LOC: LAB 11:59
PROVIDERS: PCP Family Medicine; Visit Provider Internal Medicine
DX: R63.5 Abnormal weight gain (principal); E03.9 Hypothyroidism, unspecified
CPT/HCPCS: 36415; 84439; 84443

== ENCOUNTER → 2023-11-17 10:40 | Outpatient (BNVA) | payer MEDICARE, SELFPAY | PROVIDERS: PCP Family Medicine; Referring Provider Psychiatry & Neurology Neurology; Visit Provider Internal Medicine Cardiovascular Disease | DX: R94.31 Abnormal electrocardiogram [ECG] [EKG] (principal); I95.9 Hypotension, unspecified; E03.8 Other specified hypothyroidism; I95.1 Orthostatic hypotension; E55.9 Vitamin D deficiency, unspecified; N18.9 Chronic kidney disease, unspecified | CPT/HCPCS: 99204 ==

== ENCOUNTER → 2023-11-24 11:05 | Outpatient (BNVA) | payer MEDICARE, SELFPAY | PROVIDERS: PCP Family Medicine; Referring Provider Psychiatry & Neurology Neurology; Visit Provider Psychiatry & Neurology Neurology | DX: R20.2 Paresthesia of skin (principal); M79.601 Pain in right arm; M79.602 Pain in left arm; M79.604 Pain in right leg; M79.605 Pain in left leg; G56.13 Other lesions of median nerve, bilateral upper limbs; G57.30 Lesion of lateral popliteal nerve, unspecified lower limb | CPT/HCPCS: 95913 ==

== ENCOUNTER 2024-01-10 12:23 | Outpatient (CLI) | payer MEDICARE, SELFPAY ==
[2024-01-10 12:42] LABS: Bilirubin Urine Negative (Negative); Blood Urine Negative (Negative); Glucose Urine UA Negative (Normal); Ketones Urine Trace (Negative); Leukocyte Esterase Urine 1+ (Negative); Nitrate Urine Positive (Negative); Protein Urine Negative (Negative); Urine Appearance Clear (CLEAR); Urine Color Yellow (Yellow)
[2024-01-10 12:45] LABS: Bacteria Urine 4+ /hpf; Hyaline Casts Urine 3.71 /lpf; RBC Urine 0-2 /hpf (0-2); WBC Urine 21-50 /hpf (0-5)
[2024-01-10 12:58] LABS: Specific Gravity, Urine 1.031 (1.005-1.030)
[2024-01-10 12:59] LABS: Add Urine Culture? No
== END 2024-01-10 12:24 | disposition home or self-care (01) ==
PROVIDERS: PCP Family Medicine; Visit Provider Nurse Practitioner Gerontology
DX: R80.9 Proteinuria, unspecified (principal); N18.2 Chronic kidney disease, stage 2 (mild)
CPT/HCPCS: 81001; 87086

== ENCOUNTER 2024-02-02 11:36 | Outpatient (CLI) | payer MEDICARE, SELFPAY ==
[2024-02-02 12:39] LABS: Blood Urea Nitrogen 19 mg/dL (6-20); Calcium 9.2 mg/dL (8.5-10.5); Carbon Dioxide 28 mmol/L (22-29); Chloride 104 mmol/L (98-107); Glomerular Filtration Rate 57.6 mL/min (90-130); Glucose 87 mg/dL (65-115); Osmolality Calculated 292 mOsm/kg (285-295); Sodium 140 mmol/L (136-145)
== END 2024-02-02 11:37 ==
LOC: LAB 11:40
PROVIDERS: PCP Family Medicine; Visit Provider Nurse Practitioner Gerontology
DX: G35 Multiple sclerosis (principal); G57.30 Lesion of lateral popliteal nerve, unspecified lower limb; M48.061 Spinal stenosis, lumbar region without neurogenic claudication; R20.2 Paresthesia of skin; M79.601 Pain in right arm; M79.602 Pain in left arm; M79.604 Pain in right leg; M79.605 Pain in left leg; G56.13 Other lesions of median nerve, bilateral upper limbs; G37.9 Demyelinating disease of central nervous system, unspecified; R93.0 Abnormal findings on diagnostic imaging of skull and head, not elsewhere classified
CPT/HCPCS: 36415; 80048; 99212; 99213

== ENCOUNTER 2024-02-06 07:55 | Outpatient (CLI) | payer MEDICARE, SELFPAY ==
--- NOTE | 2024-02-06 08:00 | MR_ITS ---
WS: [id number] MRI LUMBAR SPINE NONCONTRAST HISTORY: G57.30 - Lesion of lateral popliteal nerve, chronic low back pain with bilateral lower extre mity tingling and numbness. COMPARISON: 03/29/2013 TECHNIQUE: Sagittal and axial multisequence imaging is submitted. Progression of advanced degenerative disc disease and spondylosis throughout the lumbar spine since 2 014. L1, L2 and L3 retrolisthesis by 4 to 5 mm. Disc spaces continued to decrease in height with incr easing vertebral body osteophytosis. There is a small amount of marrow edema along the endplates of L 1-L4. No acute fracture. Progression of degenerative disc bulging and protrusions. Conus terminates normally at L1-2 disc level. T12-L1: Moderate sized LEFT central to paracentral disc protrusion encroaches upon the LEFT lateral r ecess and the traversing LEFT L1 nerve root. Mild bilateral foraminal stenosis. L1-L2: Diffuse annular disc bulging with osteophytic ridging. Large central disc protrusion extends i nto the RIGHT subarticular recess deforming the thecal sac. Disc protrusion has progressed since the prior study. There is significant contact and displacement of the traversing RIGHT L2 nerve root. Add itional central, mild bilateral subarticular recess and foraminal stenosis. L2-L3: Retrolisthesis of L2, annular disc bulging and asymmetric disc bulging. Disc encroaches upon t he ventral thecal sac and subarticular recesses. Asymmetric disc bulging to the LEFT. Mild to moderat e central with bilateral subarticular recess and foraminal stenosis. L3-L4: Retrolisthesis of L3 with diffuse annular disc bulging. Disc encroachment upon the ventral the kevin sac and subarticular recesses. Disc contacts the traversing L4 nerve roots. Mild central with mod erate bilateral subarticular recess and LEFT foraminal stenosis. There is a small disc protrusion in the LEFT foramen. Mild RIGHT foraminal stenosis. L4-L5: Annular disc bulging with marked ligamentum flavum and facet arthritis. There is disc contacti ng the traversing L5 nerve roots. Moderate central, bilateral subarticular recess and foraminal steno sis. L5-S1: Mild annular disc bulging with marked ligamentum flavum and facet arthritis. Small central dis c protrusion noted on the prior study has decreased in size. MR/MR lumbar spine wo con* [id number] IMPRESSION: 1. Progression of degenerative spondylitic changes throughout the lumbar spine since the prior study from 2013. 2. T12-L1: Moderate LEFT central to paracentral disc protrusion encroaching in to the lateral recess and displacing the traversing LEFT L1 nerve root. 3. L1-2: New, large central disc protrusion extending into the RIGHT subarticu lar recess. Thecal sac is deformed. Significant contact and displacement of the traversing RIGHT L2 nerve root. Central, subarticular recess and mild foramina l stenosis at L1-2. 4. L2-3: Mild to moderate central with bilateral subarticular recess and venkat inal stenosis. 5. L3-4: Central disc contacts the traversing L4 nerve roots. Mild central wit h moderate bilateral subarticular recess and LEFT foraminal stenosis due to dis c, osteophyte and facet disease. 6. L4-5: Moderate central, bilateral subarticular recess and foraminal stenosi s with mild progression. 7. L5-S1: Previously described small central disc protrusion has decreased in size.
== END 2024-02-06 07:56 | disposition home or self-care (01) ==
LOC: RAD 07:56
PROVIDERS: PCP Family Medicine; Visit Provider Psychiatry & Neurology Neurology
DX: M48.061 Spinal stenosis, lumbar region without neurogenic claudication (principal); M51.26 Other intervertebral disc displacement, lumbar region; M51.24 Other intervertebral disc displacement, thoracic region; M99.63 Osseous and subluxation stenosis of intervertebral foramina of lumbar region; M47.896 Other spondylosis, lumbar region; M25.78 Osteophyte, vertebrae; G57.30 Lesion of lateral popliteal nerve, unspecified lower limb
CPT/HCPCS: 72148

== ENCOUNTER → 2024-02-20 10:07 | Outpatient (BNVA) | payer MEDICARE, SELFPAY | PROVIDERS: PCP Family Medicine; Visit Provider Nurse Practitioner Family | DX: I95.1 Orthostatic hypotension (principal); R94.31 Abnormal electrocardiogram [ECG] [EKG] | CPT/HCPCS: 99214 ==

== ENCOUNTER 2024-02-27 07:10 | Outpatient (CLI) | payer MEDICARE, SELFPAY ==
--- NOTE | 2024-02-27 07:00 | USCV_ITS ---
Iglesia Marleny Age: 53 Gender: F : 1970 Exam Date: 02/27/2024 07:40 Ordering Phys: Carmen Recinos Technologist: JOURDAN Exam Location: [facility] [place] Indication: HYPOTENSION BP: 100 / 60 HR: 66 Rhythm: Sinus Technical Quality: Adequate MEASUREMENTS (Male / Female) Normal Values 2D ECHO LV Diastolic Diameter PLAX 3.6 cm 4.2 - 5.9 / 3.9 - 5.3 cm IVS Diastolic Thickness 1.5 cm 0.6 - 1.0 / 0.6 - 0.9 cm IVS Systolic Thickness 1.6 cm LVPW Diastolic Thickness 1.7 cm 0.6 - 1.0 / 0.6 - 0.9 cm LVPW Systolic Thickness 1.8 cm LVOT Diameter 2.0 cm LV Ejection Fraction 2D Teich 57.6 % LV Ejection Fraction MOD 4C 66.5 % LV Ejection Fraction MOD 2C 65.8 % LV Ejection Fraction 2C AL 69.2 % LA Diameter 3.3 cm RA Systolic Volume 4C AL 21.6 ml RA Systolic Volume 4C MOD 20.6 ml LA Sys Volume AL 27.3 cm cubed LA Sys Volume Index AL 15.0 cm cubed/m squared Aorta at Sinotubular Diameter 2.3 cm M-MODE LA Ao Ratio MM 1.1 AV Cusp Separation MM 1.4 cm DOPPLER AV Peak Velocity 111.0 cm/s LVOT Peak Velocity 75.0 cm/s AV Area Cont Eq vti 2.2 cm squared AV Area Cont Eq pk 2.1 cm squared MV Peak Velocity 90.0 cm/s MV Area PHT 3.0 cm squared Mitral E to A Ratio 1.5 TR Peak Velocity 237.5 cm/s TR Peak Gradient 22.6 mmHg TR Mean Velocity 204.0 cm/s TR Mean Gradient 18.1 mmHg TR Velocity Time Integral 87.0 cm TV Peak E Velocity 51.0 cm/s PV Peak Velocity 93.0 cm/s RV Ejection Time 0.4 s FINDINGS Left Ventricle Normal left ventricular size and systolic function, EF 66%.No regional wall motion abnormalities. Right Ventricle Normal right ventricular size and systolic function. Right Atrium The right atrium is normal in size. Left Atrium The left atrium is normal in size. Mitral Valve Mild mitral valve regurgitation. Aortic Valve No gross abnormalities noted Tricuspid Valve Mild tricuspid valve regurgitation. Estimated pulmonary artery peak systolic pressure 21 mmHg Pulmonic Valve No gross abnormalities noted Pericardium Normal pericardium without effusion. Aorta Normal ascending aorta dimension. IVC Not visualized CONCLUSIONS Normal left ventricular size and systolic function, EF 66%.No regional wall motion abnormalities. Mild mitral valve regurgitation. Mild tricuspid valve regurgitation. Estimated pulmonary artery peak systolic pressure 21 mmHg. There is no pericardial effusion. There are no intracardiac masses. Compared to the study from 10/28/2015, there may not be significant change Dr Danial Mckinney MD FACC (Electronically Signed) Final Date: 02 March 2024 15:41 S
== END 2024-02-27 07:11 | disposition home or self-care (01) ==
LOC: RAD 07:11
PROVIDERS: PCP Family Medicine; Visit Provider Nurse Practitioner Family
DX: R94.31 Abnormal electrocardiogram [ECG] [EKG] (principal); I95.9 Hypotension, unspecified; I95.1 Orthostatic hypotension
CPT/HCPCS: 93306

== ENCOUNTER → 2024-03-06 08:22 | Outpatient (BNVA) | payer MEDICARE, SELFPAY | PROVIDERS: PCP Family Medicine; Visit Provider Orthopaedic Surgery | DX: M54.9 Dorsalgia, unspecified (principal); M48.062 Spinal stenosis, lumbar region with neurogenic claudication | CPT/HCPCS: 72110; 99204 ==

== ENCOUNTER 2024-03-08 12:58 | Outpatient (CLI) | payer MEDICARE, SELFPAY ==
[2024-03-08 13:22] LABS: Bilirubin Urine Negative (Negative); Blood Urine Negative (Negative); Glucose Urine UA Negative (Normal); Ketones Urine Negative (Negative); Leukocyte Esterase Urine Trace (Negative); Nitrate Urine Negative (Negative); Protein Urine Negative (Negative); Specific Gravity, Urine 1.017 (1.005-1.030); Urine Appearance Clear (CLEAR); Urine Color Yellow (Yellow); Urobilinogen Urine 0.2 mg/dL (Negative)
[2024-03-08 13:25] LABS: Add Urine Microscopic? YES; Bacteria Urine None Seen /hpf; RBC Urine 0-2 /hpf (0-2); WBC Urine 0-5 /hpf (0-5)
[2024-03-08 13:33] LABS: Add Urine Culture? No
[2024-03-08 13:42] LABS: Calcium 9.5 mg/dL (8.5-10.5)
[2024-03-08 13:42] LABS: Urine Creatinine 128 mg/dL (28-217); Urine Protein Random 13 mg/dL
[2024-03-08 13:47] LABS: Parathyroid Hormone 44.8 pg/mL (15-65)
[2024-03-08 14:00] LABS: 25 Hydroxy Vitamin D 56 ng/mL (30-100); Albumin Level 4.5 g/dL (3.5-5.2); Blood Urea Nitrogen 13 mg/dL (6-20); Calcium 9.4 mg/dL (8.5-10.5); Carbon Dioxide 27 mmol/L (22-29); Chloride 104 mmol/L (98-107); Glucose 95 mg/dL (65-115); Magnesium 1.9 mg/dL (1.7-2.3); Osmolality Calculated 290 mOsm/kg (285-295); Phosphorus 2.8 mg/dL (2.5-4.5); Sodium 140 mmol/L (136-145); Uric Acid 6.1 mg/dL (2.4-5.7)
== END 2024-03-08 12:59 | disposition home or self-care (01) ==
LOC: LAB 13:00
PROVIDERS: PCP Family Medicine; Visit Provider Nurse Practitioner Gerontology
DX: N18.2 Chronic kidney disease, stage 2 (mild) (principal); E55.9 Vitamin D deficiency, unspecified; R80.9 Proteinuria, unspecified
CPT/HCPCS: 36415; 80048; 81001; 82040; 82306; 82310; 82570; 83735; 83970; 84100; 84156; 84550; 85018

== ENCOUNTER → 2024-03-12 13:07 | Outpatient (BNVA) | payer MEDICARE, SELFPAY | PROVIDERS: PCP Family Medicine; Visit Provider Specialist | DX: M17.12 Unilateral primary osteoarthritis, left knee | CPT/HCPCS: 36415; 73560; 73565; 80053; 85025; 99204 ==

== ENCOUNTER 2024-03-14 07:08 | Outpatient (CLI) | payer MEDICARE, SELFPAY ==
[2024-03-14 07:49] VITALS: BMI 27.1
--- NOTE | 2024-03-14 07:53 | ECG_ITS ---
[facility] 2024[facility]14 Pat Name: Marleny Parekh Department: Room: Gender: Female Beach Attendant: : 1970 Requested By: Carmen Recinos Order Number: [id number] Galo MD: MARCO BABIN Interpretive Statements Lung unchanged pre/post procedure; Intraprocedure shortess of breath; Symptoms resoled by discharge NOTE: Please note that this is the electrocardiogram portion of the Lexiscan/Sestamibi stress test. The perfusion scan will be documented separately. DATA: Baseline heart rate was 62 beats per minute. Baseline blood pressure was 110/72 millimeters of mercury. Target heart rate was 165. Maximum heart rate achieved was 122. which was 73% of the predicted target heart rate. Maximum blood pressure was 124/95 millimeters of mercury. The reason for ending the test was completion of the protocol. The patient did not experience any symptoms. ELECTROCARDIOGRAM: BASELINE: Sinus rhythm. Normal axis. Otherwise, no ST-T changes suggestive of ischemia noted. No arrhythmia noted. Artifact noted EXERCISE: After Lexiscan injection, no ST-T changes suggestive of ischemic noted. No arrhythmia noted. CONCLUSION: Please note due to baseline abnormality of the EKG specificity and sensitivity of the EKG portion of LexiScan MIBI stress test will be low 1. EKG not suggestive of ischemia 2. Lexiscan injection unremarkable. 3. Perfusion scan will be documented separately. Electronically Signed On 03-27-2024 22:20:11 DIALYSIS PATIENT CARE TECHNICIAN by MARCO BABIN [email or web address]
--- NOTE | 2024-03-14 07:54 | NMCV_ITS ---
NM jose perf SPECT r/s* [id number] Marleny Parekh Age: 53 Gender: F : 1970 Exam Date: 03/14/2024 08:12 Ordering Phys: Carmen Recinos Technologist: SHILO Paul Exam Location: [facility] Indications: cp STRESS TEST Please see separate stress test report in [facility] for full findings IMAGE PROTOCOL Rest/Stress 1 Lexiscan Day Radiopharmaceutical Dose (mCi) Administration Site Administered by Rest: Tc-99m 10.9 IV Catarina Mora, BUSINESS SERVICES COORDINATOR Sestamibi Stress:Tc-99m 32.4 IV Catarina Heltongle, BUSINESS SERVICES COORDINATOR Sestamibi Rest: 14-Mar-2024 60 Discovery 630 Stress: 14-Mar-2024 30 Discovery 630 0.4mg Lexiscan. Images obtained in supine and prone position. SPECT RESULTS Technical Quality: Good Raw Data Analysis: Normal Image Corrections: No attenuation or motion correction applied Summed Stress Score: 1 Summed Rest Score: 0 Summed Difference Score: 1 PERFUSION FINDINGS Small area of mild reversibility noted in the apex of the left ventricle suggestive of apical thinning artifact in the absence of wall motion abnormality FUNCTIONAL RESULTS (calculated via Gated SPECT) Stress Image LV EF (%): 71 Stress EDV (mL):70 TID: 1 Stress ESV (mL):20 FUNCTIONAL FINDINGS: There is normal left ventricular systolic function. IMPRESSIONS Myocardial perfusion imaging is normal. This study is negative for ischemia and low probability for obstructive coronary artery disease. Uri Cervantes MD (Electronically Signed) Final Date: 14 March 2024 12:37 S
[2024-03-14] MEDS: regadenoson 0.4 Mg/5 ml Syringe IVP (08:41)
[2024-03-14 08:58] VITALS: BP 114/74; PULSE 72
== END 2024-03-14 07:09 | disposition home or self-care (01) ==
LOC: CDL 07:09
PROVIDERS: PCP Family Medicine; Visit Provider Nurse Practitioner Family
DX: I95.1 Orthostatic hypotension (principal); R94.31 Abnormal electrocardiogram [ECG] [EKG]
CPT/HCPCS: 36415; 78452; 93017; 96374; A9500; J2785

== ENCOUNTER 2024-03-19 17:53 | Emergency (ER) | payer MEDICARE, SELFPAY ==
--- NOTE | 2024-03-19 18:03 | XRR_ITS ---
PROCEDURE INFORMATION: Exam: XR Left Foot Exam date and time: 03/19/2024 6:15 PM Age: 53 years old Clinical indication: Injury or trauma; Fall; Blunt trauma; Foot; Left TECHNIQUE: Imaging protocol: Radiologic exam of the left foot. Views: 3 or more views. COMPARISON: CR XR foot LT 2V [id number] 09/03/2021 1:05 PM FINDINGS: Bones/joints: Plantar calcaneal spurring. The joint spaces are maintained. No ankle joint effusion. Linear lucency the base of the 2nd metatarsal bone can be further evaluated with a CT foot noncontrast examination follow up. Soft tissues: Mild midfoot dorsal soft tissue swelling. XR/XR foot LT min 3V* [id number] IMPRESSION: As above.
--- NOTE | 2024-03-19 18:03 | XRR_ITS ---
PROCEDURE INFORMATION: Exam: XR Left Ankle Exam date and time: 03/19/2024 6:17 PM Age: 53 years old Clinical indication: Injury or trauma; Fall; Blunt trauma; Ankle; Left TECHNIQUE: Imaging protocol: Radiologic exam of the left ankle. Views: 3 or more views. COMPARISON: CR XR ankle LT 2V [id number] 10/14/2021 1:01 PM FINDINGS: Bones/joints: Nondisplaced lateral malleolar fracture with adjacent bone fragments. No ankle joint effusion. Talar dome is intact. Soft tissues: Soft tissue swelling surrounding the lateral ankle joint. XR/XR ankle LT min 3V* [id number] IMPRESSION: As above.
[2024-03-19 18:26] VITALS: BP 136/84; PULSE 73; RESP 17; TEMP 36.7; O2SAT 100; BMI 27.1
--- NOTE | 2024-03-19 19:12 | ED_ITS ---
HPI - Extremity Injury (Lower) General: Chief Complaint: Extremity Injury, Lower Stated Complaint: Fell Left Ankle Time Seen by Provider: 03/19/24 19:00 Source: patient and family Mode of arrival: wheelchair Limitations: no limitations History of Present Illness: Patient is a 53-year-old female presents to ED today with a complaint of foot and ankle pain following a slip and fall earlier today. She is also having some left hip pain. Most of her pain and swelling seems to be localized to the lateral aspect of the left ankle. She states she cannot bear weight secondary to pain. Denies any other injuries at this time. Denies striking her head or LOC. No neck or back pain. MD complaint: hip injury, ankle injury and foot injury Onset (ago): hour(s) Injury: Left: ankle and foot Place: home Severity: severe Relieving factors: immobilization Exacerbating factors: weight bearing, movement and palpation Context: fall Associated symptoms: Reports inability to bear weight Other symptoms: none Related Data Home Medications Medication Instructions Recorded Confirmed propranolol 10 mg tablet 10 mg PO BID 02/02/24 03/12/24 Previous Rx's Medication Instructions Recorded amitriptyline 25 mg tablet See Rx Instructions .Route 03/01/23 .COMPLEX #60 tabs pen needle, diabetic 32 gauge x #100 ea 05/13/2305/06 (Comfort EZ Pen Winifred) cholecalciferol (vitamin D3) 1,250 50,000 unit PO .COMPLEX #14 caps 09/27/23 mcg (50,000 unit) capsule epinephrine 0.3 mg/0.3 mL 0.3 mg (0.3 mL) IM Q10M PRN 10/27/23 injection, auto-injector (EpiPen) Anaphylaxis #2 ea meloxicam 7.5 mg tablet See Rx Instructions .Route 10/27/23 .COMPLEX #90 tabs hydroxychloroquine 200 mg tablet 200 mg PO BID #60 tabs 11/10/23 exenatide 10 mcg/dose(250 10 mcg (0.04 mL) SUBCUT BID #2.4 mL 11/15/23 mcg/mL)2.4 mL subcutaneous pen injector (Byetta) levothyroxine 125 mcg tablet 125 mcg PO DAILY #90 tabs 11/15/23 gabapentin 100 mg capsule See Rx Instructions .Route 11/17/23 .COMPLEX #90 caps clonazepam 2 mg tablet 2 mg PO BID #60 tabs 10/22/24 bupropion HCl 300 mg 24 hr tablet, See Rx Instructions .Route 01/17/24 extended release .COMPLEX #90 tabs sumatriptan succinate 100 mg tablet See Rx Instructions .Route 01/17/24 .COMPLEX #9 tabs fluoxetine 20 mg capsule See Rx Instructions .Route 03/14/24 .COMPLEX #90 caps Allergies Allergy/AdvReac Type Severity Reaction Status Date / Time Penicillins Allergy ALGY-Anaphy Verified 03/14/24 07:49 laxis venom-honey bee Allergy ALGY-Anaphy Verified 03/14/24 07:49 laxis stinging insects Allergy Severe trouble Uncoded 03/14/24 07:49 breathing Review of Systems Musc: Reports: back pain (chronic-at baseline), extremity pain (L foot), joint pain (L ankle), joint swelling (L ankle) and limited range of motion; Denies: neck pain, joint redness or joint warmth Neuro: Reports: difficulty walking (secondary to L ankle pain); Denies: numbness in extremities, weakness in extremities or sensory changes PFSH ED PFSH: Medical History Multiple sclerosis Undifferentiated connective tissue disease Hypothyroidism Foot pain Surgical History Status post colonoscopy (12/25/19) repeat in 5 years Social History Smoking and tobacco/nicotine status: unknown if used tobacco/nicotine Physical Exam Const: COMMON NORMALS: no acute distress, average body habitus, patient oriented x3, no limitations, healthy appearing, alert and well nourished Extremity: COMMON NORMALS: capillary refill normal and no calf tenderness GENERAL: Yes normal exam except as noted LEFT LOWER EXTREMITY: Yes hip joint (mild discomfort; hard to evaluate as she is seated in wheelchair) Left hip: Yes ROM (fairly good ROM without significant discomfort) and Yes neurovascular exam (normal), Yes ankle joint (significant swelling/pain to lateral L ankle) Left ankle: Yes neurovascular exam (normal) and Yes foot & digits (TTP dorsal L foot w/o edema or bony deformity) Left foot and digits: Yes neurovascular exam (normal) Neuro: COMMON NORMALS: patient oriented x3, moves all extremities, no focal motor deficits and no sensory deficits noted SENSORIUM/ORIENTATION: Yes alert Course Vital Signs: Vital signs: Vital Signs Temperature 98.0 F 03/19/24 18:26 Pulse Rate 73 03/19/24 18:26 Respiratory Rate 17 03/19/24 18:26 Blood Pressure 136/84 03/19/24 18:26 Pulse Oximetry 100 03/19/24 18:26 Oxygen Delivery Me thod Room Air 03/19/24 18:26 MDM - Extremity Injury (Lower) Medical Decision Making XRs showing a distal fibular fracture of the left ankle. Questionable second metatarsal fracture. She will be splinted and given crutches and will have her follow-up with podiatry. Lab Data Radiology Impressions Ankle X-Ray 03/19/24 18:03 IMPRESSION: As above. Foot X-Ray 03/19/24 18:03 IMPRESSION: As above. All radiology interpretation(s) finalized by discharge Discharge Plan Discharge Patient Disposition: Home Clinical Impression: Fall from slipping, Closed fracture of distal end of left fibula Condition: Stable Prescriptions: No Action (DME) pen needle, diabetic [Comfort EZ Pen [place]red] 32 gauge x 3/16 needle See Rx Instructions .Route Qty: 100 0RF Rx Instructions: As directed May substitute epinephrine [EpiPen] 0.3 mg/0.3 mL auto-injector 0.3 mg IM Q10M PRN (Reason: Anaphylaxis) Qty: 2 0RF Rx Instructions: for 2 doses meloxicam 7.5 mg tablet See Rx Instructions .ROUTE .COMPLEX Qty: 90 3RF Hold Instructions: Home Medication placed on hold at Doctor's office Dose Instruction: TAKE 1 TABLET BY MOUTH DAILY Rx Instructions: TAKE 1 TABLET BY MOUTH DAILY levothyroxine 125 mcg tablet 125 mcg PO DAILY Qty: 90 2RF Byetta 10 mcg/dose(250 mcg/mL) 2.4 mL pen injector 10 mcg SUBCUT BID Qty: 2.4 3RF Rx Instructions: inject 10mcg 2x/day before breakfast and dinner hydroxychloroquine 200 mg tablet 200 mg PO BID Qty: 60 11RF propranolol 10 mg tablet 10 mg PO BID amitriptyline 25 mg tablet See Rx Instructions .ROUTE .COMPLEX Qty: 60 11RF Dose Instruction: TAKE 1-4 TABLETS BY MOUTH EVERY DAY AT NIGHT Rx Instructions: TAKE 1-4 TABLETS BY MOUTH EVERY EVENING. cholecalciferol (vitamin D3) 1,250 mcg (50,000 unit) capsule 50,000 unit PO .COMPLEX Qty: 14 4RF Rx Instructions: 50,000 units orally weekly; 1 pill a week gabapentin 100 mg capsule See Rx Instructions .ROUTE .COMPLEX Qty: 90 3RF Dose Instruction: TAKE 1 CAPSULE BY MOUTH THREE TIMES DAILY Rx Instructions: TAKE 1 CAPSULE BY MOUTH THREE TIMES DAILY clonazepam 2 mg tablet 2 mg PO BID Qty: 60 4RF sumatriptan succinate 100 mg tablet See Rx Instructions .ROUTE .COMPLEX Qty: 9 11RF Dose Instruction: TAKE 1/2 TO 1 TABLET BY MOUTH EVERY 2 HOURS NEEDED FOR HEADACHES(MAX 2 IN 24 HOURS) Rx Instructions: TAKE 1/2 TO 1 TABLET BY MOUTH EVERY 2 HOURS NEEDED FOR HEADACHES(MAX 2 IN 24 HOURS) bupropion HCl 300 mg tablet extended release 24 hr See Rx Instructions .ROUTE .COMPLEX Qty: 90 3RF Dose Instruction: TAKE 1 TABLET BY MOUTH EVERY DAY Rx Instructions: TAKE 1 TABLET BY MOUTH EVERY DAY fluoxetine 20 mg capsule See Rx Instructions .ROUTE .COMPLEX Qty: 90 3RF Dose Instruction: TAKE 1 CAPSULE BY MOUTH DAILY Rx Instructions: TAKE 1 CAPSULE BY MOUTH DAILY Discharge Orders: Discharge ED (Routine); Ordered 03/19/24 Ordered By: Clara Johnson Referrals: Antonio Nash MD [Primary Care Provider] - Patient Instructions: Ankle Fracture (DC) Activity Restrictions/Additional Instructions: As we discussed, there is a fracture involving the distal fibula of your left ankle. The radiologist also commented about a possible fracture of your second metatarsal. You need to stay in your splint at all times until follow-up with podiatry. You need to ice and elevate the extremity is much as possible. You have stated you are comfortable taking OTC analgesics for discomfort. Coding Level of Care Code ED Rep[employer]r [employer] for Ankit Willis
--- NOTE | 2024-03-19 19:12 | XRR_ITS ---
PROCEDURE INFORMATION: Exam: XR Left Hip Exam date and time: 03/19/2024 7:22 PM Age: 53 years old Clinical indication: Injury or trauma; Fall; Blunt trauma (contusions or hematomas); Left; Hip; Additional info: Fall/injury; One view pelvis too please TECHNIQUE: Imaging protocol: Radiologic exam of the left hip. Views: 2 or 3 views hip with pelvis when performed. COMPARISON: CR XR hip BI 3-4V wo/w pel [id number] 10/14/2021 1:01 PM FINDINGS: Bones/joints: Advanced degenerative changes of the left hip joint. No definitive acute displaced fracture. No dislocation. No pubic symphyseal or sacroiliac joint widening. The sacrum is partially obscured due to overlying bowel gas. Soft tissues: Unremarkable. Intraperitoneal space: The pelvis appears intact. XR/XR hip LT 2-3V wo/w pel* [id number] IMPRESSION: As above.
[2024-03-19 20:07] VITALS: BP 136/84; PULSE 73; O2SAT 100
--- NOTE | 2024-03-21 14:10 | DCPLANNER ---
Message sent ortho and podiatry
== END 2024-03-19 20:09 | disposition home or self-care (01) ==
PROVIDERS: Emergency Provider Physician Assistant; PCP Family Medicine
DX: S82.492A Other fracture of shaft of left fibula, initial encounter for closed fracture (principal); W01.0XXA Fall on same level from slipping, tripping and stumbling without subsequent striking against object, initial encounter
CPT/HCPCS: 29515; 73502; 73610; 73630; 99283

== ENCOUNTER 2024-03-20 13:46 | Outpatient (CLI) | payer MEDICARE, SELFPAY | END 2024-03-20 13:47 | disposition home or self-care (01) | LOC: SPT 13:47 | PROVIDERS: PCP Family Medicine; Visit Provider Podiatrist Foot & Ankle Surgery | DX: Z46.89 Encounter for fitting and adjustment of other specified devices (principal); S99.912D Unspecified injury of left ankle, subsequent encounter; S99.922D Unspecified injury of left foot, subsequent encounter; S82.832D Other fracture of upper and lower end of left fibula, subsequent encounter for closed fracture with routine healing; X58.XXXD Exposure to other specified factors, subsequent encounter | CPT/HCPCS: 99204; L4361 ==

== ENCOUNTER 2024-03-23 07:56 | Day surgery (SDC) | payer MEDICARE, SELFPAY ==
[2024-03-23] VITALS (8 sets, daily range): BP systolic 125–153; BP diastolic 66–90; PULSE 75–87; RESP 12–18; TEMP 36.3–36.6; O2SAT 93–100
--- NOTE | 2024-03-23 | XR_ITS ---
WS: [id number] C-ARM RADIOGRAPHS LEFT FOOT; 2 IMAGES HISTORY: ROSALIO PICS COMPARISON: 03/19/2024 Orthopedic screw overlies the midfoot. Screw extends from the first cuneiform to overlie the proximal second and third metatarsals. XR/XR foot LT min 3V* [id number] IMPRESSION: Screw fixation midfoot.
--- NOTE | 2024-03-23 06:51 | P.OP_ITS ---
Operative Report Date of procedure: March 23, 2024 Pre-op diagnosis: Lisfranc fracture Injury of left ankle and foot, initial encounter S99.912A; S99.922A Closed displaced fracture of second metatarsal bone of left foot, initial encounter S92.322A Post-op diagnosis: Lisfranc fracture Injury of left ankle and foot, initial encounter S99.912A; S99.922A Closed displaced fracture of second metatarsal bone of left foot, initial encounter S92.322A Procedure done: Open reduction internal fixation left Lisfranc fracture. CPT code 07490 Implants: [place] 3.5 mm solid screw fully threaded with washer 42 mm in length Specimens removed/disposition: None Pathology: None Surgeon: Mayito Castro DPM Supervisor Roller Shop: Reilly Estimated blood loss: 1 13 IV fluids: See intraoperative documentation Urine output: None Complications: None Brief History: 53-year-old female with a history of avulsion fracture of the left distal fibula and Lisfranc fracture presenting with left foot and ankle pain. The avulsion fracture of the left distal fibula is currently stable and does not require surgical intervention. The Lisfranc fracture exhibits significant diastasis and displaced intraarticular fragments, raising concerns for potential chronic midfoot instability without surgical correction. 1. Avulsion Fracture Of The Left Distal Fibula Management will be conservative with continued immobilization and non- weightbearing status. 2. Lisfranc Fracture Of The Left Foot Due to the significant diastasis of the first intermetatarsal space and displaced intraarticular fragments, surgical intervention with open reduction and internal fixation of the left tarsometatarsal joint is advised. A single home run screw will transfix the medial cuneiform to the base of the second metatarsal. The patient has consented to this plan, acknowledging the risks and benefits, including the potential for chronic pain and the future requirement for arthrodesis due to post-traumatic arthritis. - Remain non-weightbearing with the use of crutches. - Anticipate transitioning to protected weightbearing in approximately 6 weeks. - Monitor for increased pain, swelling, or changes in skin color and report if observed. - Follow prescribed timeline for surgical intervention and postoperative recovery. The treatment decision focuses on preventing chronic midfoot instability due to the significant displacement in the Lisfranc fracture. Conservative management of the avulsion fracture of the distal fibula is deemed appropriate given its stability. Surgical fixation is recommended for the Lisfranc fracture to realign the displaced tarsometatarsal joint, ideally restoring joint function and minimizing future complications. The patient understands the necessity of surgery, including possible outcomes of persistent pain due to post-traumatic changes, and agrees with the treatment plan. I reviewed at length with the patient, the risks, potential complications, benefits, alternatives, expectations, and typical outcomes associated with the surgery. The risks and potential complications were explained in detail, including but not limited to infection, wound dehiscence or soft tissue complications, bleeding and hematoma, chronic edema, neuritis or nerve damage producing numbness or chronic pain, CRPS, failure to relieve pain or worsening pain, thick / painful / unsightly scar, limited motion / stiffness, malposition, delayed union, malunion, or nonunion, fracture, reaction to implants, anesthetic complications, venous thromboembolism, and deformity recurrence. I discussed the notion of no regrets with the patient as it pertains to complications and outcomes. The patient seemed to understand the nature of the proposed care and required convalescence. They asked appropriate questions, answered to their satisfaction. They are aware no guarantees can be made as to a satisfactory outcome and they understand there may be other possible unforeseen complications or outcomes not listed here that will be treated accordingly if they arise. There were no written or implied guarantees given to the patient. They gave informed consent to proceed. Procedure: Under mild sedation the patient was brought to the operating room and remained on the gurney in supine position. A timeout was performed. Anesthesia was then administered by the anesthesia service. Local anesthesia was injected by myself consisting of 20 cc of 0.5% Marcaine plain in a proximal Glaser block fashion to the left foot followed by an additional 20 cc of Exparel subcutaneously in a grid like fashion at the operative site. Well-padded pneumatic tourniquet was applied to the left ankle. The left lower extremity was then scrubbed prepped and draped utilizing normal aseptic technique. Left foot was exanguinated with an Esmarch bandage and tourniquet inflated to 250 mmHg. Attention was directed to the left forefoot where under fluoroscopy the fracture was evaluated, an incision was made medial to the medial cuneiform through skin with a #15 blade with dissection carried down through subcutaneous tissue to the layer periosteum utilizing sharp and blunt technique. Care was taken to retract and preserve neurovascular and tendinous structures. All bleeders were ligated and cauterized as necessary. Next a K wire was advanced in the trajectory of fixation in a oblique fashion from the medial proximal portion of the medial cuneiform coursing distal lateral across the second metatarsal base next utilizing standard AO technique fracture was reduced and fixated utilizing a [place] fully threaded solid screw with washer with excellent bony apposition and compression noted and reduction of the fracture in the AP oblique and lateral view of the left foot taken intraoperatively with C arm without violating adjacent joints. The incision was irrigated with saline solution and closed with 4-0 nylon. Dressing consisting of Xeroform, sterile gauze, Kerlix and a well-padded multilayer compressive posterior splint with the foot and ankle in neutral position. Tourniquet was deflated and a prompt hyperemic response is noted to the distal digits of the left foot. Patient tolerated the procedure and anesthesia well and was transferred to the PACU with vital signs stable and vascular status intact. Following a period of postoperative monitoring, discharged home without home care instructions and scheduled follow-up. Was advised to remain nonweightbearing to the left foot and elevate while resting. She was provided a prescription for hydrocodone 10/325 mg to be taken every 6 hours as needed for pain. Also advised her to begin taking an 81 mg aspirin once daily starting the morning after surgery March 24, 2024 likely for 6-week course postoperatively to help reduce risks of deep vein thrombosis until she is ambulatory.
[2024-03-23] MEDS: sodium chloride 0.9% 1,000 ML 30 ML IV (08:29)
--- NOTE | 2024-03-23 08:37 | ANES.PREANE2 ---
Pre-Anesthetic Assessment Height/Weight: Height 1.63 m Weight 70.307 kg Temp Pulse Resp BP Pulse Ox O2 Del Method 97.7 F 87 18 145/88 97 Room Air 03/23/24 08:10 03/23/24 08:10 03/23/24 08:10 03/23/24 08:10 03/23/24 08:10 03/23/24 08:30 Preop Diagnosis: Left Lisfranc fracture Operation Date: 03/23/24 09:40 Proposed Procedures p ORIF Foot ORIF Lisfranc(Left) - Mayito Castro DPM Familial anesthetic complications: None Was Beta Harpreet taken within 24 hours: N/A Was Clonidine taken within 24 hours: N/A Last intake: Intake Last Liquid Date 03/22/24 Last Liquid Time 22:30 Last Solid Date 03/22/24 Last Solid Time 18:30 Social No alcohol and No tobacco Exam alert, oriented x 3, clear to auscultation bilaterally and regular rate & rhythm Airway Mallampati: Class II Dentition: other (None) Chronic Renal Insufficiency Metabolic Thyroid Disease Neuropsych MS Anesthetic Plan ASA status: 3 Anesthesia: MAC Risk of > 500 ml blood loss (7ml/kg in children): No Medications/Allergies Home Medications Medication Instructions Recorded Confirmed Last Taken Type pen needle, diabetic 32 gauge x #100 ea 05/13/23 03/20/24 Unknown Rx 3/16 (Comfort EZ Pen [place]) cholecalciferol (vitamin D3) 1,250 50,000 unit PO .COMPLEX #14 caps 09/27/23 03/22/24 Unknown Rx mcg (50,000 unit) capsule epinephrine 0.3 mg/0.3 mL 0.3 mg (0.3 mL) IM Q10M PRN 10/27/23 03/22/24 Unknown Rx injection, auto-injector (EpiPen) Anaphylaxis #2 ea hydroxychloroquine 200 mg tablet 200 mg PO BID #60 tabs 11/10/23 03/22/24 03/22/24 Rx exenatide 10 mcg/dose(250 10 mcg (0.04 mL) SUBCUT BID #2.4 mL 11/15/23 03/22/24 03/12/24 Rx mcg/mL)2.4 mL subcutaneous pen injector (Byetta) levothyroxine 125 mcg tablet 125 mcg PO DAILY #90 tabs 11/15/23 03/22/24 03/22/24 Rx clonazepam 2 mg tablet 2 mg PO BID #60 tabs 12/13/23 03/22/24 03/22/24 Rx propranolol 10 mg tablet 10 mg PO BID 02/02/24 03/22/24 Unknown History fluoxetine 20 mg capsule See Rx Instructions .Route 03/14/24 03/22/24 03/22/24 Rx .COMPLEX #90 caps Cam boot to left #1 ea 03/20/24 03/20/24 Unknown Rx amitriptyline 25 mg tablet 25 mg PO DAILY PRN Migraine 03/22/24 03/22/24 Unknown History Headache bupropion HCl 300 mg 24 hr tablet, 300 mg PO DAILY 03/22/24 03/22/24 03/22/24 History extended release gabapentin 100 mg capsule 100 mg PO DAILY PRN Migraine 03/22/24 03/22/24 03/22/24 History Headache sumatriptan succinate 100 mg tablet 100 mg PO .Q2HR PRN headaches 03/22/24 03/23/24 03/22/24 History Allergies Allergy/AdvReac Type Severity Reaction Status Date / Time Penicillins Allergy ALGY-Anaphy Verified 03/22/24 08:04 laxis venom-honey bee Allergy ALGY-Anaphy Verified 03/22/24 08:04 laxis stinging insects Allergy Severe trouble Uncoded 03/22/24 08:04 breathing Current Medications Generic Name Dose Route Start Last Admin Trade Name Freq PRN Reason Stop Dose Admin Sodium Chloride 1,000 mls @ 30 mls/hr 03/23/24 08:15 03/23/24 08:29 Sodium Chloride 0.9% IV 03/24/24 08:14 30 mls/hr .Q24H SAHARA Administration PFSH Anesthesia Medical History Multiple sclerosis Undifferentiated connective tissue disease Hypothyroidism Foot pain Surgical History Status post colonoscopy (12/25/19) repeat in 5 years Social History Smoking and tobacco/nicotine status: never used tobacco/nicotine Data Anesthesia Cardiac Studies: Echocardiogram 02/27/24 Sestamibi Stress Test (Cardiology) 03/14/24
--- NOTE | 2024-03-23 09:24 | W.PM.OPSUD ---
Surgery/Procedure H&P Update DATE OF PROCEDURE: March 23, 2024 DATE H&P PERFORMED: 02/17/25 H&P UPDATE INFORMATION: I have reviewed H&P completed within last 30 days, I have examined patient prior to procedure, No changes to prior documentation and H&P is in [facility] [place] [facility] EMR on date indicated PREOP DIAGNOSIS: Left Lisfranc fracture PLANNED PROCEDURE: Operation Date: 03/23/24 09:40 Proposed Procedures p ORIF Foot ORIF Lisfranc(Left) - Mayito Castro DPM
[2024-03-23] MEDS: clindamycin 600 MG/50 ML PREMIX 100 MG IV (09:40)
[2024-03-23] MEDS: BUPivacaine 0.5% INJ 30 mL XX (09:53)
[2024-03-23] MEDS: BUPivacaine liposome 13.3 mg/mL SDV 20 mL 266 MG INFILTRATI (09:53)
--- NOTE | 2024-03-23 10:20 | P.BOP_ITS ---
Date of Procedure: 05/06/23 Surgeon: Mayito Castro DPM Structural [employer] Worker Helper(s): Reilly Procedure(s) performed: Open reduction internal fixation left midfoot fracture Findings of the procedure(s): Lisfranc fracture left foot with displacement anatomically reduced postoperatively. Estimated blood loss: 1 mL Specimen(s) removed: No specimens Post-operative diagnosis: Left Lisfranc fracture involving left tarsometatarsal joint
--- NOTE | 2024-03-23 11:05 | ANE.PACU2 ---
Inpatient post-anesthesia follow up: Airway intact: Yes Vital signs: Temperature 97.4 F Pulse Rate 84 Respiratory Rate 16 Blood Pressure 153/87 Pulse Oximetry 97 Oxygen Delivery Me thod Room Air Oxygen Flow Rate Fraction of Inspir ed Oxygen Hydration adequate: Yes Nausea and vomiting: No Pain level: 1 Mental status: Baseline
== END 2024-03-23 11:09 | disposition home or self-care (01) ==
PROVIDERS: PCP Family Medicine; Visit Provider Podiatrist Foot & Ankle Surgery
PROC: (CPT 28615; principal; 2024-03-23 09:30)
DX: S93.325A Dislocation of tarsometatarsal joint of left foot, initial encounter (principal); S92.322A Displaced fracture of second metatarsal bone, left foot, initial encounter for closed fracture; S82.832A Other fracture of upper and lower end of left fibula, initial encounter for closed fracture; S99.912A Unspecified injury of left ankle, initial encounter; S99.922A Unspecified injury of left foot, initial encounter; Z79.899 Other long term (current) drug therapy; Z79.890 Hormone replacement therapy; Z88.0 Allergy status to penicillin; E03.9 Hypothyroidism, unspecified; G35 Multiple sclerosis
CPT/HCPCS: 28615; 73630; 76000; C1713; C9290; J2704; J3010; J3490; J7030

== ENCOUNTER → 2024-04-05 13:54 | Outpatient (BNVA) | payer MEDICARE, SELFPAY | PROVIDERS: PCP Family Medicine; Visit Provider Podiatrist Foot & Ankle Surgery | DX: Z98.890 Other specified postprocedural states (principal); S82.832D Other fracture of upper and lower end of left fibula, subsequent encounter for closed fracture with routine healing; S92.322D Displaced fracture of second metatarsal bone, left foot, subsequent encounter for fracture with routine healing; X58.XXXD Exposure to other specified factors, subsequent encounter | CPT/HCPCS: 73630; 99024 ==

== ENCOUNTER → 2024-05-03 13:34 | Outpatient (BNVA) | payer MEDICARE, SELFPAY | PROVIDERS: PCP Family Medicine; Visit Provider Podiatrist Foot & Ankle Surgery | DX: Z98.890 Other specified postprocedural states (principal) | CPT/HCPCS: 73630; 99024 ==

== ENCOUNTER 2024-05-14 08:26 | Outpatient (CLI) | payer MEDICARE, SELFPAY ==
[2024-05-14 09:18] LABS: Bilirubin Urine Negative (Negative); Blood Urine Trace (Negative); Glucose Urine UA Negative (Normal); Ketones Urine Negative (Negative); Leukocyte Esterase Urine 3+ (Negative); Nitrate Urine Positive (Negative); Protein Urine Trace (Negative); Specific Gravity, Urine 1.017 (1.005-1.030); Urine Appearance Cloudy (CLEAR); Urine Color Yellow (Yellow); Urobilinogen Urine 0.2 mg/dL (Negative); pH Urine 5.5 (5-7)
[2024-05-14 09:21] LABS: Add Urine Microscopic? YES; Bacteria Urine 4+ /hpf; Hyaline Casts Urine 1.21 /lpf; RBC Urine 0-2 /hpf (0-2); Squamous Epithelial Cell Urine 0-5 /hpf (0-5); WBC Urine >100 /hpf (0-5)
[2024-05-14 09:28] LABS: Add Urine Culture? Yes
[2024-05-14 09:31] LABS: Free T4 Free Thyroxine 1.64 ng/dL (0.82-1.77); Thyroid Stimulating Hormone 1.57 uIU/mL (0.27-4.20)
== END 2024-05-14 08:27 | disposition home or self-care (01) ==
LOC: LAB 08:27
PROVIDERS: Specialist; PCP Family Medicine; Visit Provider Internal Medicine
DX: R63.5 Abnormal weight gain (principal); M25.569 Pain in unspecified knee
CPT/HCPCS: 36415; 81001; 84439; 84443

== ENCOUNTER → 2024-05-17 14:47 | Outpatient (BNVA) | payer MEDICARE, SELFPAY | PROVIDERS: PCP Family Medicine; Visit Provider Podiatrist Foot & Ankle Surgery | DX: Z98.890 Other specified postprocedural states (principal); T84.84XA Pain due to internal orthopedic prosthetic devices, implants and grafts, initial encounter; Y79.2 Prosthetic and other implants, materials and accessory orthopedic devices associated with adverse incidents | CPT/HCPCS: 73630; 99214 ==

== ENCOUNTER 2024-06-19 11:57 | Outpatient (CLI) | payer MEDICARE, SELFPAY ==
[2024-06-19 13:03] LABS: Creatinine Urine, Random 246 mg/dL (28-217); Microalbum Creatinine Ratio Ur 12 mg/dL (0-20); Microalbumin Random Urine 3 ug/dL (0-20)
[2024-06-19 13:08] LABS: Albumin Level 4.3 g/dL (3.5-5.2); Anion Gap 14.5 (5-19); Blood Urea Nitrogen 22 mg/dL (6-20); Calcium 9.6 mg/dL (8.5-10.5); Carbon Dioxide 25 mmol/L (22-29); Chloride 106 mmol/L (98-107); Glomerular Filtration Rate 51.6 mL/min (90-130); Glucose 86 mg/dL (65-115); Osmolality Calculated 295 mOsm/kg (285-295); Phosphorus 3.5 mg/dL (2.5-4.5); Potassium 4.5 mmol/L (3.5-5.1); Sodium 141 mmol/L (136-145); Uric Acid 6.2 mg/dL (2.4-5.7)
[2024-06-19 13:09] LABS: Calcium 9.8 mg/dL (8.5-10.5)
[2024-06-19 13:13] LABS: Parathyroid Hormone 44.1 pg/mL (15-65)
[2024-06-19 13:22] LABS: 25 Hydroxy Vitamin D 66 ng/mL (30-100)
[2024-06-19 13:29] LABS: Bilirubin Urine Negative (Negative); Blood Urine Negative (Negative); Glucose Urine UA Negative (Normal); Ketones Urine Trace (Negative); Leukocyte Esterase Urine Trace (Negative); Nitrate Urine Negative (Negative); Protein Urine Trace (Negative); Urine Appearance Clear (CLEAR); Urine Color Yellow (Yellow)
[2024-06-19 13:33] LABS: Add Urine Microscopic? YES; Bacteria Urine None Seen /hpf; RBC Urine 0-2 /hpf (0-2)
[2024-06-19 13:35] LABS: Add Urine Culture? No
== END 2024-06-19 11:58 | disposition home or self-care (01) ==
PROVIDERS: PCP Family Medicine; Visit Provider Nurse Practitioner Gerontology
DX: N18.2 Chronic kidney disease, stage 2 (mild) (principal); E55.9 Vitamin D deficiency, unspecified; R80.9 Proteinuria, unspecified
CPT/HCPCS: 80048; 81001; 82040; 82044; 82306; 82310; 83735; 83970; 84100; 84550; 85018

== ENCOUNTER → 2024-06-26 11:04 | Outpatient (BNVA) | payer MEDICARE, SELFPAY | PROVIDERS: PCP Family Medicine; Visit Provider Orthopaedic Surgery | DX: M48.062 Spinal stenosis, lumbar region with neurogenic claudication (principal); M54.2 Cervicalgia | CPT/HCPCS: 72050; 72110; 99213 ==

== ENCOUNTER 2024-06-29 06:05 | Day surgery (SDC) | payer MEDICARE, SELFPAY ==
[2024-06-29] VITALS (8 sets, daily range): BP systolic 85–137; BP diastolic 47–77; PULSE 54–65; RESP 16–18; TEMP 36.1–36.2; O2SAT 98–100; BMI 25.0
--- NOTE | 2024-06-29 06:10 | ANES.PREANE2 ---
Pre-Anesthetic Assessment Height/Weight: Height 1.63 m Preop Diagnosis: Painful hardware left foot. Operation Date: 06/29/24 07:00 Proposed Procedures p Hardware Removal in LEFT foot(Left) - Mayito Castro DPM Social No alcohol and No tobacco Exam alert, oriented x 3, clear to auscultation bilaterally and regular rate & rhythm Airway Submandibular: within normal limits Cervical ROM: within normal limits Mallampati: Class I [facility] [place] Rheumatoid Arthritis and Weakness Neuropsych Neuropathy MS Anesthetic Plan ASA status: 3 Anesthesia: General Medications/Allergies Home Medications ?Medication ?Instructions ?Recorded ?Confirmed ?Last Taken ?Type pen needle, diabetic 32 gauge x #100 ea 05/13/23 06/26/24 Unknown Rx 16 (Comfort EZ Pen [place]) epinephrine 0.3 mg/0.3 mL 0.3 mg (0.3 mL) IM Q10M PRN 10/27/23 06/28/24 10/04/23 Rx injection, auto-injector (EpiPen) Anaphylaxis #2 ea hydroxychloroquine 200 mg tablet 200 mg PO BID #60 tabs 11/10/23 06/28/24 06/28/24 Rx levothyroxine 125 mcg tablet 125 mcg PO DAILY #90 tabs 11/15/23 06/28/24 06/28/24 Rx Cam boot to left #1 ea 03/20/24 06/26/24 Unknown Rx bupropion HCl 300 mg 24 hr tablet, 300 mg PO DAILY 03/22/24 06/28/24 06/28/24 History extended release sumatriptan succinate 100 mg tablet 100 mg PO .Q2HR PRN headaches 03/22/24 06/28/24 06/07/24 History cholecalciferol (vitamin D3) 1,250 50,000 unit PO .WEEKLY 03/23/24 06/28/24 06/24/24 History mcg (50,000 unit) capsule fluoxetine 20 mg capsule 20 mg PO DAILY 03/23/24 06/28/24 06/28/24 History liraglutide 0.6 mg/0.1 mL (18 mg/3 1.8 mg (0.3 mL) SUBCUT DAILY 1 05/14/24 06/28/24 Unknown Rx mL) subcutaneous pen injector month #9 mL (Victoza 2-Mike) propranolol 10 mg tablet 10 mg PO BID migraines #180 tabs 05/21/24 06/28/24 06/28/24 Rx clonazepam 2 mg tablet 2 mg PO BID #60 tabs 05/25/24 06/28/24 06/28/24 Rx amitriptyline 25 mg tablet 25 mg PO QPM 06/28/24 06/28/24 Unknown History gabapentin 100 mg capsule 100 mg PO TID 06/28/24 06/28/24 06/28/24 History Allergies Allergy/AdvReac Type Severity Reaction Status Date / Time Penicillins Allergy ALGY-Anaphy Verified 05/17/24 15:01 laxis venom-honey bee Allergy ALGY-Anaphy Verified 05/17/24 15:01 laxis stinging insects Allergy Severe trouble Uncoded 05/17/24 15:01 breathing [facility] Anesthesia Medical History Rheumatoid arthritis Multiple sclerosis Undifferentiated connective tissue disease Hypothyroidism Foot pain Surgical History Status post colonoscopy (12/25/19) repeat in 5 years Social History Smoking and tobacco/nicotine status: never used tobacco/nicotine Data Anesthesia Cardiac Studies: Echocardiogram 02/27/24 Sestamibi Stress Test (Cardiology) 03/14/24
--- NOTE | 2024-06-29 06:30 | W.PM.OPSUD ---
Surgery/Procedure H&P Update DATE OF PROCEDURE: June 29, 2024 DATE H&P PERFORMED: 05/17/24 H&P UPDATE INFORMATION: I have reviewed H&P completed within last 30 days, I have examined patient prior to procedure, No changes to prior documentation and Risks and benefits of the procedure reviewed PREOP DIAGNOSIS: Painful hardware left foot. PLANNED PROCEDURE: Operation Date: 06/29/24 07:00 Proposed Procedures p Hardware Removal in LEFT foot(Left) - Mayito Castro DPM
--- NOTE | 2024-06-29 06:30 | PM.OP ---
Operative Report Date of procedure: June 29, 2024 Pre-op diagnosis: Painful orthopaedic hardware T84.84XA Post-op diagnosis: Painful orthopaedic hardware T84.84XA Procedure done: Hardware removal left foot. CPT code 33962 Implants: 4-0 Nylon Surgeon: Mayito Castro DPM Tumbler Dyeing Machine Operator: Damian Estimated blood loss: 1 14 IV fluids: Intraoperative documentation Urine output: none Complications: no complications Brief History: X-ray shows healed left second metatarsal and stable postoperative findings with no further diastases of first intermetatarsal space. Patient having irritation at the hardware site requesting removal. I reviewed at length with the patient, the risks, potential complications, benefits, alternatives, expectations, and typical outcomes associated with the surgery. The risks and potential complications were explained in detail, including but not limited to infection, wound dehiscence or soft tissue complications, bleeding and hematoma, chronic edema, neuritis or nerve damage producing numbness or chronic pain, CRPS, failure to relieve pain or worsening pain, thick / painful / unsightly scar, limited motion / stiffness, malposition, delayed union, malunion, or nonunion, fracture, reaction to implants, anesthetic complications, venous thromboembolism, and deformity recurrence. I discussed the notion of no regrets with the patient as it pertains to complications and outcomes. The patient seemed to understand the nature of the proposed care and required convalescence. They asked appropriate questions, answered to their satisfaction. They are aware no guarantees can be made as to a satisfactory outcome and they understand there may be other possible unforeseen complications or outcomes not listed here that will be treated accordingly if they arise. There were no written or implied guarantees given to the patient. They gave informed consent to proceed. Procedure: Under mild sedation the patient was brought to the operating room and remained on the gurney in supine position. A timeout was performed. Anesthesia was administered by the anesthesia service. Local anesthesia injected by myself consisting of 20 cc of 0.5 Marcaine and a proximal Glaser block fashion an additional 20 cc of Exparel subcutaneously in a grid like fashion proximal to the operative site. Well-padded pneumatic tourniquet applied to the left ankle. Left foot and ankle were exanguinated with an Esmarch bandage and tourniquet inflated to 250 mmHg. Attention was directed to the medial aspect of the left forefoot where of her previous cicatrix incision was performed through skin with #15 blade with dissection carried down through subcutaneous tissue to the layer of hardware implanted on bone at the medial cuneiform utilizing a combination of sharp and blunt technique. Care was taken to retract and preserve neurovascular and tendinous structures. All bleeders were ligated and cauterized as necessary. Able to visualize screw head and washer these were extracted without fragmentation or failure and passed from the operative field, the incision was irrigated with saline solution. IntraOp C arm was stressing the foot showed stability at the Lisfranc ligament without diastases at the first intermetatarsal space. Further irrigation was performed and skin closed with 4-0 nylon. Dressing consisting of Xeroform, 4 x 4 gauze, Kerlix and Gonzalo wrap followed by application of a postop shoe to the left lower extremity. Tourniquet was deflated and a prompt hyperemic response is noted to the distal digits of the left foot. Patient tolerated the procedure and anesthesia well and was transferred to the PACU with vital signs stable and vascular status intact. Following a period of postoperative monitoring she will be discharged home without home care instructions and scheduled follow-up
[2024-06-29] MEDS: sodium chloride 0.9% 1,000 ML 30 ML IV (06:32)
[2024-06-29] MEDS: clindamycin 600 MG/50 ML PREMIX 100 MG IV (07:00)
[2024-06-29] MEDS: BUPivacaine liposome 13.3 mg/mL SDV 20 mL 266 MG INJECTION (07:25)
[2024-06-29] MEDS: BUPivacaine 0.5% INJ 10 mL 20 ML INJECTION (07:25)
--- NOTE | 2024-06-29 10:17 | PM.OPSURHP ---
Providers/Chief Complaint Primary Care Provider: Antonio Nash MD Chief Complaint: T84.84XA History of Present Illness 53 year old female patient presenting to clinic for post operative follow up after an Open reduction internal fixation left Lisfranc fracture DOS: 03/23/24 Review of Systems General: Reports: 10 or more systems reviewed and unremarkable except in HPI and below Const: Denies: fever(s) or chills Eyes: Denies: change in vision Card: Denies: chest pain or palpitations Resp: Denies: dyspnea or productive cough GI: Denies: abdominal pain, nausea or vomiting : Denies: flank pain Musc: Reports: extremity pain, joint pain, joint stiffness, limited range of motion and deformity Skin/Breast: Reports: skin tenderness; Denies: rash Neuro: Reports: difficulty walking; Denies: numbness in extremities, sensory changes or frequent falls Psych: Denies: suicidal ideation Kris/Lymph: Denies: easy bruising Medications/Allergies Home Medications ?Medication ?Instructions ?Recorded ?Confirmed ?Last Taken ?Type pen needle, diabetic 32 gauge x #100 ea 05/13/23 06/26/24 Unknown Rx 05/06 (Comfort EZ Pen [place]) epinephrine 0.3 mg/0.3 mL 0.3 mg (0.3 mL) IM Q10M PRN 10/27/23 06/28/24 10/04/23 Rx injection, auto-injector (EpiPen) Anaphylaxis #2 ea hydroxychloroquine 200 mg tablet 200 mg PO BID #60 tabs 11/10/23 06/28/24 06/28/24 Rx levothyroxine 125 mcg tablet 125 mcg PO DAILY #90 tabs 11/15/23 06/28/24 06/28/24 Rx Cam boot to left #1 ea 03/20/24 06/26/24 Unknown Rx bupropion HCl 300 mg 24 hr tablet, 300 mg PO DAILY 03/22/24 06/28/24 06/28/24 History extended release sumatriptan succinate 100 mg tablet 100 mg PO .Q2HR PRN headaches 03/22/24 06/28/24 06/07/24 History cholecalciferol (vitamin D3) 1,250 50,000 unit PO .WEEKLY 03/23/24 06/28/24 06/24/24 History mcg (50,000 unit) capsule fluoxetine 20 mg capsule 20 mg PO DAILY 03/23/24 06/28/24 06/28/24 History liraglutide 0.6 mg/0.1 mL (18 mg/3 1.8 mg (0.3 mL) SUBCUT DAILY 1 05/14/24 06/28/24 Unknown Rx mL) subcutaneous pen injector month #9 mL (Victoza 2-Mike) propranolol 10 mg tablet 10 mg PO BID migraines #180 tabs 05/21/24 06/28/24 06/28/24 Rx clonazepam 2 mg tablet 2 mg PO BID #60 tabs 05/25/24 06/28/24 06/28/24 Rx amitriptyline 25 mg tablet 25 mg PO QPM 06/28/24 06/29/24 06/28/24 History gabapentin 100 mg capsule 100 mg PO TID 06/28/24 06/28/24 06/28/24 History hydrocodone 7.5 mg-acetaminophen 1 tab PO Q6H PRN pain 7 days #28 06/29/24 Unknown Rx 325 mg tablet tabs Allergies Allergy/AdvReac Type Severity Reaction Status Date / Time Penicillins Allergy ALGY-Anaphy Verified 05/17/24 15:01 laxis venom-honey bee Allergy ALGY-Anaphy Verified 05/17/24 15:01 laxis stinging insects Allergy Severe trouble Uncoded 05/17/24 15:01 breathing PFSH PFSH: Medical History Rheumatoid arthritis Multiple sclerosis Undifferentiated connective tissue disease Hypothyroidism Foot pain Surgical History Status post colonoscopy (12/25/19) repeat in 5 years Social History Smoking and tobacco/nicotine status: never used tobacco/nicotine Dietary Habits: Caffeine: Yes Caffeine intake frequency: coffee and tea Vital Signs Vitals Signs: Last Vital Signs Temp 97.2 F L 06/29/24 08:18 Pulse 60 06/29/24 08:18 Resp 17 06/29/24 08:18 BP 137/77 06/29/24 08:18 Pulse Ox 100 06/29/24 08:18 O2 Del Method Room Air 06/29/24 08:18 O2 Flow Rate 6 06/29/24 07:38 Weight: Weight last 48 hrs Weight 146 lb Physical Exam Narrative: EXAM NARRATIVE: GENERAL: Patient is alert and oriented ?3 and in no acute distress. The following is a focused left lower extremity exam. VASCULAR: Dorsalis pedis and posterior tibial arteries palpable +2. Capillary refill time less than 3 seconds to the distal hallux bilaterally. Calf is supple and nontender proximally and distally. Mild edema at the operative site consistent with postoperative course. NEUROLOGICAL: Protective sensation intact to light touch. DERMATOLOGICAL: Well-healed cicatrix left foot. MUSCULOSKELETAL: Pain to palpation at hardware left medial foot. Rectus left foot, no pain to palpation at left Lisfranc joint or ligament. Muscle strength +5 in all 3 planes left foot and ankle. CARDIOVASCULAR: S1, S2, normal rate, normal rhythm. Dorsalis pedis and posterior tibial arteries palpable. LUNGS: Clear to auscltation, no use of acessory muscles, no crackles or wheezes. A&P Assessment and plan (1) Foot pain: (2) Painful orthopaedic hardware: Plan X-ray shows healed left second metatarsal and stable postoperative findings with no further diastases of first intermetatarsal space. Patient having irritation at the hardware site requesting removal. I reviewed at length with the patient, the risks, potential complications, benefits, alternatives, expectations, and typical outcomes associated with the surgery. The risks and potential complications were explained in detail, including but not limited to infection, wound dehiscence or soft tissue complications, bleeding and hematoma, chronic edema, neuritis or nerve damage producing numbness or chronic pain, CRPS, failure to relieve pain or worsening pain, thick / painful / unsightly scar, limited motion / stiffness, malposition, delayed union, malunion, or nonunion, fracture, reaction to implants, anesthetic complications, venous thromboembolism, and deformity recurrence. I discussed the notion of no regrets with the patient as it pertains to complications and outcomes. The patient seemed to understand the nature of the proposed care and required convalescence. They asked appropriate questions, answered to their satisfaction. They are aware no guarantees can be made as to a satisfactory outcome and they understand there may be other possible unforeseen complications or outcomes not listed here that will be treated accordingly if they arise. There were no written or implied guarantees given to the patient. They gave informed consent to proceed. Planning for hardware removal June 29, 2024 outpatient, local MAC, hector, supine, 15 minutes. PDMP PDMP Reviewed: Last Reviewed 06/29/24 07:50 EDT by Mayito Castro DPM Coding Level of Care Code Acute Code for Chg Fwd Diagnoses Foot pain M79.673 Painful orthopaedic hardware T84.84XA
--- NOTE | 2024-06-29 12:35 | ANE.PACU2 ---
Inpatient post-anesthesia follow up: Airway intact: Yes Vital signs: Temperature 97.2 F Pulse Rate 60 Respiratory Rate 17 Blood Pressure 137/77 Pulse Oximetry 100 Oxygen Delivery Me thod Room Air Oxygen Flow Rate 6 Fraction of Inspir ed Oxygen Hydration adequate: Yes Nausea and vomiting: No Pain level: controlled Mental status: Baseline
== END 2024-06-29 08:39 | disposition home or self-care (01) ==
PROVIDERS: PCP Family Medicine; Visit Provider Podiatrist Foot & Ankle Surgery
PROC: (CPT 20680; principal; 2024-06-29 07:00)
DX: T84.84XA Pain due to internal orthopedic prosthetic devices, implants and grafts, initial encounter (principal); G35 Multiple sclerosis; E03.9 Hypothyroidism, unspecified; M06.9 Rheumatoid arthritis, unspecified; Z79.899 Other long term (current) drug therapy; Z79.85 Long-term (current) use of injectable non-insulin antidiabetic drugs; Z88.0 Allergy status to penicillin; Y79.3 Surgical instruments, materials and orthopedic devices (including sutures) associated with adverse incidents
CPT/HCPCS: 20680; J0666; J2250; J2704; J3010; J3490; J7030

== ENCOUNTER 2024-07-03 07:01 | Outpatient (CLI) | payer MEDICARE, SELFPAY ==
--- NOTE | 2024-07-03 07:15 | MR_ITS ---
WS: [id number] MRI CERVICAL SPINE NONCONTRAST TECHNIQUE: Sagittal T1, T2 and STIR imaging. Axial T2, gradient, and fiesta imaging. CLINICAL INFORMATION: Neck Pain COMPARISON: MRI 09/27/2023 FINDINGS: Straightening of the normal cervical lordosis. Cord signal is normal. No high-grade central canal narrowing. No demyelinating lesions within the cervical cord. No cord atrophy. C2-C3: Normal. C3-C4: Mild facet arthropathy. Moderate RIGHT and mild LEFT bony foraminal narrowing. Mild facet arthropathy. C4-C5: Disc osteophyte complex. Moderate facet arthropathy. Moderate bilateral bony foraminal narrowing. C5-C6: Disc osteophyte complex with endplate ridging. Severe RIGHT and moderate LEFT bony foraminal narrowing. Moderate facet arthropathy with uncovertebral joint hypertrophy. C6-C7: Disc osteophyte complex with endplate ridging. Moderate LEFT greater than RIGHT bony foraminal narrowing. Moderate facet arthropathy. C7-T1: No significant disc bulging. Mild LEFT and no significant RIGHT foraminal narrowing. Spinal canal is patent. LEFT paracentral protrusion T2-3 similar to previous. MR/MR cervical spin wo con* [id number] IMPRESSION: 1. No demyelinating lesions within the cervical cord. No cord atrophy. 2. Mild spondylitic changes similar to previous. 3. Moderate bony foraminal narrowing worse at bilateral C4-5 worse on the RIGH T, severe RIGHT C5-C6, and moderate bilateral C6-7. 4. LEFT paracentral protrusion T2-3 similar to previous.
--- NOTE | 2024-07-03 08:00 | MR_ITS ---
WS: [id number] MRI LUMBAR SPINE NONCONTRAST TECHNIQUE: Sagittal T1, T2 and STIR imaging. Axial T1 and T2 imaging. CLINICAL INFORMATION: Back Pain COMPARISON: MRI 02/06/2024 FINDINGS: Mild lumbar curve. No acute compression. Slight retrolisthesis L1-L2, L2-L3, and L3-4. This is similar to previous. L1-L2: RIGHT subarticular disc protrusion impinges the RIGHT subarticular recess and traversing RIGHT L2 nerve root. Mild central canal stenosis. Mild facet arthropathy. Mild RIGHT foraminal narrowing. L2-L3: Mild central canal stenosis with impingement on the LEFT greater than RIGHT subarticular recess similar to previous. Moderate facet arthropathy. Moderate RIGHT and mild LEFT foraminal narrowing. L3-L4: RIGHT subarticular disc protrusion impinges the traversing RIGHT L4 nerve root. Moderate central canal stenosis. This appears slightly progressed compared to previous. Moderate LEFT and mild RIGHT foraminal narrowing. Moderate facet arthropathy. L4-L5: Mild central canal stenosis. Impingement LEFT subarticular recess. Advanced facet arthropathy. Mild LEFT foraminal narrowing. L5-S1: Mild annular bulging. Advanced facet arthropathy. Spinal canal and foramen are patent. Visualized pelvic bony structures: Normal. Paravertebral soft tissues: Normal. Incidental Tarlov cyst in the sacrum. Small RIGHT renal cysts. MR/MR lumbar spine wo con* [id number] IMPRESSION: 1. RIGHT subarticular disc protrusion L1-2 impinges the traversing RIGHT L2 ne rve root in the subarticular recess. Mild central canal stenosis 2. Mild to moderate central canal stenosis L2-3. 3. Moderate central canal stenosis L3-4 appears slightly progressed compared t o previous. RIGHT subarticular protrusion impinges the traversing RIGHT L4 nerv e root. 4. Mild central canal stenosis L4-5 with impingement of traversing LEFT L5 ner ve root. 5. Moderate foraminal narrowing worse at RIGHT L2-3 and LEFT L3-4. 6. Stable LEFT paracentral protrusion T12-L1.
== END 2024-07-03 07:02 | disposition home or self-care (01) ==
PROVIDERS: PCP Family Medicine; Visit Provider Orthopaedic Surgery
DX: M47.892 Other spondylosis, cervical region (principal); M48.02 Spinal stenosis, cervical region; M51.24 Other intervertebral disc displacement, thoracic region; R93.7 Abnormal findings on diagnostic imaging of other parts of musculoskeletal system; M25.78 Osteophyte, vertebrae; M47.812 Spondylosis without myelopathy or radiculopathy, cervical region; M48.03 Spinal stenosis, cervicothoracic region; M51.26 Other intervertebral disc displacement, lumbar region; M48.061 Spinal stenosis, lumbar region without neurogenic claudication; M51.25 Other intervertebral disc displacement, thoracolumbar region; M43.8X6 Other specified deforming dorsopathies, lumbar region; M47.896 Other spondylosis, lumbar region; M51.379 Other intervertebral disc degeneration, lumbosacral region without mention of lumbar back pain or lower extremity pain; M47.897 Other spondylosis, lumbosacral region; G96.191 Perineural cyst; N28.1 Cyst of kidney, acquired
CPT/HCPCS: 72141; 72148

== ENCOUNTER → 2024-07-12 14:17 | Outpatient (BNVA) | payer MEDICARE, SELFPAY | PROVIDERS: PCP Family Medicine; Visit Provider Orthopaedic Surgery | DX: M48.062 Spinal stenosis, lumbar region with neurogenic claudication (principal); M54.2 Cervicalgia; M54.50 Low back pain, unspecified; Z09 Encounter for follow-up examination after completed treatment for conditions other than malignant neoplasm; T84.84XA Pain due to internal orthopedic prosthetic devices, implants and grafts, initial encounter; Y79.2 Prosthetic and other implants, materials and accessory orthopedic devices associated with adverse incidents | CPT/HCPCS: 99024; 99214 ==

== ENCOUNTER → 2024-07-31 13:30 | Outpatient (BNVA) | payer MEDICARE, SELFPAY | PROVIDERS: PCP Family Medicine; Visit Provider Psychiatry & Neurology Neurology | DX: G56.13 Other lesions of median nerve, bilateral upper limbs (principal); G57.30 Lesion of lateral popliteal nerve, unspecified lower limb; M48.061 Spinal stenosis, lumbar region without neurogenic claudication; E55.9 Vitamin D deficiency, unspecified; G35 Multiple sclerosis; R20.2 Paresthesia of skin; M79.601 Pain in right arm; M79.602 Pain in left arm; M79.604 Pain in right leg; M79.605 Pain in left leg; G37.9 Demyelinating disease of central nervous system, unspecified; R93.0 Abnormal findings on diagnostic imaging of skull and head, not elsewhere classified; G43.119 Migraine with aura, intractable, without status migrainosus | CPT/HCPCS: 99212 ==

== ENCOUNTER 2024-07-31 15:03 | Outpatient (CLI) | payer MEDICARE, SELFPAY ==
[2024-07-31 16:45] LABS: 25 Hydroxy Vitamin D 77 ng/mL (30-100)
== END 2024-07-31 15:04 | disposition home or self-care (01) ==
PROVIDERS: Psychiatry & Neurology Neurology; PCP Family Medicine; Visit Provider Internal Medicine
DX: E55.9 Vitamin D deficiency, unspecified (principal)
CPT/HCPCS: 36415; 82306

== ENCOUNTER → 2024-08-06 12:41 | Outpatient (BNVA) | payer MEDICARE, SELFPAY | PROVIDERS: PCP Family Medicine; Referring Provider Orthopaedic Surgery; Visit Provider Anesthesiology Pain Medicine | DX: M48.062 Spinal stenosis, lumbar region with neurogenic claudication (principal) | CPT/HCPCS: 99204 ==

== ENCOUNTER 2024-08-12 13:42 | Emergency (ER) | payer MEDICARE, SELFPAY ==
[2024-08-12 13:42] VITALS: BP 124/81; PULSE 97; RESP 16; TEMP 36.7; O2SAT 99; BMI 25.7
--- NOTE | 2024-08-12 14:06 | W.ED.ANIMALB ---
HPI - Animal Bite General: Chief Complaint: Animal Bite Stated Complaint: dog bites on both arms Time Seen by Provider: 08/12/24 14:01 Source: patient Mode of arrival: ambulatory Limitations: no limitations History of Present Illness: 53-year-old female states that one of her dogs at bit her today. She does have puncture wounds right forearm and 1 laceration to left forearm roughly 4 cm. No bleeding at this time. She is up-to-date on her tetanus states that dogs are up-to-date on immunizations. Minimal pain Associated symptoms: Deny chills, fever(s) or headache(s) Related Data Home Medications ?Medication ?Instructions ?Recorded ?Confirmed bupropion HCl 300 mg 24 hr tablet, 300 mg PO DAILY 03/22/24 08/06/24 extended release cholecalciferol (vitamin D3) 1,250 50,000 unit PO .WEEKLY 03/23/24 08/06/24 mcg (50,000 unit) capsule fluoxetine 20 mg capsule 20 mg PO DAILY 03/23/24 08/06/24 gabapentin 100 mg capsule 100 mg PO TID 06/28/24 08/06/24 Previous Rx's ?Medication ?Instructions ?Recorded pen needle, diabetic 32 gauge x #100 ea 05/13/2305/06 (Comfort EZ Pen [place]) epinephrine 0.3 mg/0.3 mL 0.3 mg (0.3 mL) IM Q10M PRN 10/27/23 injection, auto-injector (EpiPen) Anaphylaxis #2 ea hydroxychloroquine 200 mg tablet 200 mg PO BID #60 tabs 11/10/23 Cam boot to left #1 ea 03/20/24 liraglutide 0.6 mg/0.1 mL (18 mg/3 1.8 mg (0.3 mL) SUBCUT DAILY 1 05/14/24 mL) subcutaneous pen injector month #9 mL (Victoza 2-Mike) propranolol 10 mg tablet 10 mg PO BID migraines #180 tabs 05/21/24 clonazepam 2 mg tablet 2 mg PO BID #60 tabs 05/25/24 galcanezumab-gnlm 120 mg/mL 120 mg SUBCUT .monthly migraine #1 07/31/24 subcutaneous syringe (Emgality) mL galcanezumab-gnlm 120 mg/mL 240 mg (2 mL) SUBCUT ONCE migraine 07/31/24 subcutaneous syringe (Emgality) #2 mL rimegepant 75 mg disintegrating 75 mg PO ONCE PRN migraine 08/01/24 tablet headache #8 tabs levothyroxine 125 mcg tablet 125 mcg PO DAILY #90 tabs 08/07/24 cephalexin 500 mg capsule 500 mg PO TID 7 days #21 caps 08/12/24 Allergies Allergy/AdvReac Type Severity Reaction Status Date / Time insect venom Allergy ALGY-Anaphy Verified 08/12/24 13:47 laxis Penicillins Allergy ALGY-Anaphy Verified 08/06/24 12:56 laxis venom-honey bee Allergy ALGY-Anaphy Verified 08/06/24 12:56 laxis Review of Systems Const: Denies: fever(s), chills, body aches or change in appetite ENMT: Denies: throat pain or dental pain Card: Denies: chest pain Resp: Denies: dyspnea GI: Denies: abdominal pain, nausea, vomiting or diarrhea Musc: Denies: neck pain or back pain Skin/Breast: Denies: rash Neuro: Denies: headache(s) PFSH ED PFSH: Medical History Rheumatoid arthritis Multiple sclerosis Undifferentiated connective tissue disease Hypothyroidism Foot pain Surgical History Status post colonoscopy (12/25/19) repeat in 5 years Social History Smoking and tobacco/nicotine status: never used tobacco/nicotine Physical Exam Const: COMMON NORMALS: no acute distress, patient oriented x3 and healthy appearing HENMT: COMMON NORMALS: normocephalic and atraumatic HEAD & SCALP: normocephalic and atraumatic Eye: COMMON NORMALS: conjunctivae normal CONJUNCTIVA: Yes conjunctivae normal Neck/C-Spine: COMMON NORMALS: full ROM and supple Chest: COMMONS NORMALS: normal inspection of the chest and normal palpation of entire chest wall Resp: COMMON NORMALS: normal respiratory effort Cardio: COMMON NORMALS: regular rate RATE: regular rate Extremity: NARRATIVE EXTREMITY EXAM: Puncture wounds noted to right forearm does have a laceration anterior surface of left forearm worsening meters bleeding is controlled no deep structure injuries Neuro: COMMON NORMALS: patient oriented x3, moves all extremities and no focal motor deficits Psych: COMMON NORMALS: mental status grossly normal, Normal thought process present and cooperative THOUGHT PROCESS: Normal thought process present Skin: COMMON NORMALS: no rashes or lesions noted GENERAL SKIN EXAM: no rashes or lesions noted Procedures Laceration Laceration 1: Site: upper extremity Side (If applicable): left Size (cm): 4 Description: linear Depth: simple, single layer Local Anesthetic: lidocaine 1% Amount of anesthesia used (mL): 8 Pre-repair: wound explored, irrigated extensively and deep structures intact Skin layer closed with: nylon Size (cm): 4-0 Number of sutures: 2 Technique: simple, interrupted Course Vital Signs: Vital signs: Vital Signs Temperature 98.0 F 08/12/24 13:42 Pulse Rate 97 08/12/24 13:42 Respiratory Rate 16 08/12/24 13:42 Blood Pressure 124/81 08/12/24 13:42 Pulse Oximetry 99 08/12/24 13:42 Oxygen Delivery Me thod Room Air 08/12/24 13:42 MDM - Animal Bite Medical Decision Making Patient presents here with dog bite along with laceration to the left forearm did loosely close the laceration thoroughly irrigated it deep structures were intact will place on antibiotics she stable for discharge follow-up PCP return if worsening. Medical Records I reviewed the patient's medical records. No radiology studies performed this visit Discharge Plan Discharge Patient Disposition: Home Clinical Impression: Dog bite, Laceration Condition: Stable Prescriptions: New cephalexin 500 mg capsule 500 mg PO TID 7 Days Qty: 21 0RF No Action (DME) pen needle, diabetic [Comfort EZ Pen [place]] 32 gauge x 3/16 needle See Rx Instructions .Route Qty: 100 0RF Rx Instructions: As directed May substitute epinephrine [EpiPen] 0.3 mg/0.3 mL auto-injector 0.3 mg IM Q10M PRN (Reason: Anaphylaxis) Qty: 2 0RF Rx Instructions: for 2 doses liraglutide [Victoza 2-Mike] 0.6 mg/0.1 mL (18 mg/3 mL) pen injector 1.8 mg SUBCUT DAILY 30 Days Qty: 9 3RF (DME) Cam boot to left See Rx Instructions .Route .MEDSUPPLY Qty: 1 0RF Rx Instructions: As directed hydroxychloroquine 200 mg tablet 200 mg PO BID Qty: 60 11RF Emgality Syringe 120 mg/mL syringe 240 mg SUBCUT ONCE Qty: 2 0RF Emgality Syringe 120 mg/mL syringe 120 mg SUBCUT .monthly Qty: 1 5RF propranolol 10 mg tablet 10 mg PO BID Qty: 180 3RF clonazepam 2 mg tablet 2 mg PO BID Qty: 60 4RF rimegepant 75 mg tablet,disintegrating 75 mg PO ONCE PRN (Reason: migraine headache) Qty: 8 0RF Rx Instructions: Do not exceed 75mg in 24 hour period levothyroxine 125 mcg tablet 125 mcg PO DAILY Qty: 90 2RF bupropion HCl 300 mg tablet extended release 24 hr 300 mg PO DAILY Rx Instructions: TAKE 1 TABLET BY MOUTH EVERY DAY fluoxetine 20 mg capsule 20 mg PO DAILY Rx Instructions: TAKE 1 CAPSULE BY MOUTH DAILY cholecalciferol (vitamin D3) 1,250 mcg (50,000 unit) capsule 50,000 unit PO .WEEKLY Rx Instructions: 50,000 units orally weekly; 1 pill a week on sundays gabapentin 100 mg capsule 100 mg PO TID Rx Instructions: TAKE ONE CAPSULE BY MOUTH THREE TIMES DAILY Discharge Orders: Discharge ED (Routine); Ordered 08/12/24 Ordered By: Alo Hernandez Referrals: Antonio Nash MD [Primary Care Provider, Family Practice] Discharge Diet: Advance as tolerated Discharge Activity: Resume usual activity Patient Instructions: Animal Bite (ED), Laceration (ED) Activity Restrictions/Additional Instructions: suture removal in 10 days Print Language: Georgian Coding Level of Care Code ED Linoleum Tile Layer for Ankit Willis
[2024-08-12] MEDS: cephALEXin 500 mg Capsule PO (14:15)
--- NOTE | 2024-08-12 14:45 | PC.NURSE ---
WOunds rinsed in sink and then irrigated with betadine and saline.
[2024-08-12 14:46] VITALS: BP 119/93; PULSE 83; O2SAT 100
== END 2024-08-12 15:14 | disposition home or self-care (01) ==
PROVIDERS: Emergency Provider Emergency Medicine; PCP Family Medicine
DX: S51.851A Open bite of right forearm, initial encounter (principal); S41.112A Laceration without foreign body of left upper arm, initial encounter; W54.0XXA Bitten by dog, initial encounter
CPT/HCPCS: 12002; 99283; J9999

== ENCOUNTER 2024-08-13 13:53 | Emergency (ER) | payer MEDICARE, SELFPAY ==
[2024-08-13 14:00] VITALS: BP 109/64; PULSE 83; RESP 17; TEMP 36.7; O2SAT 99; BMI 25.7
--- NOTE | 2024-08-13 14:27 | ED_ITS ---
HPI - Recheck/Abnormal Lab/Rx General: Chief Complaint: Skin/Abscess/Foreign Body Stated Complaint: sent form health department rabies shot Time Seen by Provider: 08/13/24 14:16 Source: patient Mode of arrival: ambulatory Limitations: no limitations History of Present Illness: Patient is a nice 53-year-old female presents to ED today stating that she was pretty much demanded to come here by the [facility] for rabies post-exposure prophylaxis. 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 She was seen here in the emergency department and had wounds cleaned and repaired. She has been taking her antibiotics. She states the animal had been kenneled its whole life and could not have been exposed to rabies. She also states the animal was up to date on its rabies immunization. She states the dog did have a history of aggression and following yesterday's bite, her shot the animal. Patient states she was contacted by the health department today who stated she had to come to the emergency department for rabies PEP. Patient does not want the shots as she feels they are unnecessary. MD complaint: other (told to come by Health Department) Initial visit (ago): day(s) (yesterday) Initial visit for: animal bite Returns today for: rabies shot Symptoms since prior visit: no new symptoms Associated symptoms: none Related Data Home Medications ?Medication ?Instructions ?Recorded ?Confirmed bupropion HCl 300 mg 24 hr tablet, 300 mg PO DAILY 08/06/24 extended release cholecalciferol (vitamin D3) 1,250 50,000 unit PO .TEVIN VIRK 03/23/24 08/06/24 mcg (50,000 unit) capsule fluoxetine 20 mg capsule 20 mg PO DAILY 03/23/2407/22 gabapentin 100 mg capsule 100 mg PO TID 06/28/2408/06 Previous Rx's ?Medication ?Instructions ?Recorded pen needle, diabetic 32 gauge x #100 ea 05/13/2305/06 (Comfort EZ Pen [place]) epinephrine 0.3 mg/0.3 mL 0.3 mg (0.3 mL) IM Q10M PRN 10/27/23 injection, auto-injector (EpiPen) Anaphylaxis #2 ea hydroxychloroquine 200 mg tablet 200 mg PO BID #60 tab s 11/10/23 Cam boot to left #1 ea 03/20/24 liraglutide 0.6 mg/0.1 mL (18 mg/3 1.8 mg (0.3 mL) SUB CUT DAILY 1 05/14/24 mL) subcutaneous pen injector month #9 mL (Victoza 2-Mike) propranolol 10 mg tablet 10 mg PO BID migraines #180 tabs 05/21/24 clonazepam 2 mg tablet 2 mg PO BID #60 tabs 5 galcanezumab-gnlm 120 mg/mL 120 mg SUBCUT .monthly shahla teresita #1 07/31/24 subcutaneous syringe (Emgality) mL galcanezumab-gnlm 120 mg/mL 240 mg (2 mL) SUBCUT ONCE migraine 07/31/24 subcutaneous syringe (Emgality) #2 mL rimegepant 75 mg disintegrating 75 mg PO ONCE PRN migr renard 08/01/24 tablet headache #8 tabs levothyroxine 125 mcg tablet 125 mcg PO DAILY #90 tabs 08/07/24 cephalexin 500 mg capsule 500 mg PO TID 7 days #21 cap s 08/12/24 Allergies Allergy/AdvReac Type Severity Reaction Status Date / Time insect venom Allergy ALGY-Anaphy Verified 08/13/24 14:08 laxis Penicillins Allergy ALGY-Anaphy Verified 08/13/24 14:08 laxis venom-honey bee Allergy ALGY-Anaphy Verified 08/13/24 14:08 laxis Review of Systems Const: Denies: fever(s), chills, body aches, fatigue or malaise Musc: Reports: other (L wrist sore from bite but overall seems to be improving; full ROM) Skin/Breast: Reports: other (no redness/drainage from bite dickey) Neuro: Denies: sensory changes PFSH ED PFSH: Medical History Rheumatoid arthritis Multiple sclerosis Undifferentiated connective tissue disease Hypothyroidism Foot pain Surgical History Status post colonoscopy (12/25/19) repeat in 5 years Social History Smoking and tobacco/nicotine status: never used tobacco/nicotine Physical Exam Const: COMMON NORMALS: no acute distress, average body habitus, no limitations, healthy appearing, alert and well nourished GENERAL APPEARANCE: cooperative Extremity: GENERAL: Yes normal exam except as noted LEFT UPPER EXTREMITY: Yes wrist OTHER: bite to her L wrist appears well cared for; mild edema; no erythema/warmth/streaking/discharge Neuro: COMMON NORMALS: moves all extremities, no focal motor deficits and no sensory deficits noted SENSORIUM/ORIENTATION: Yes alert Course Vital Signs: Vital signs: Vital Signs Temperature 98.1 F 08/13/24 14:00 Pulse Rate 83 08/13/24 14:00 Respiratory Rate 17 08/13/24 14:00 Blood Pressure 109/64 08/13/24 14:00 Pulse Oximetry 99 08/13/24 14:00 Oxygen Delivery Me thod Room Air 08/13/24 14:00 MDM - Recheck/Abnormal Lab/Rx Medical Decision Making The dog had been kenneled its whole life and had patient has no concern for rabies exposure. Patient states the animal was also up-to-date on its rabies immunization shot. Patient was offered rabies PEP at the request of the [facility] but I also explained to her that it is her right to decline this. She does not want to initiate rabies PEP today. She was given a tetanus shot as she was not sure the last time she had one. Continued wound care/infection precautions discussed. Medical Records I reviewed the patient's medical records. No radiology studies performed this visit Discharge Plan Discharge Patient Disposition: Home Clinical Impression: Dog bite of left wrist Condition: Stable Prescriptions: No Action (DME) pen needle, diabetic [Comfort EZ Pen [place]] 32 gauge x 3/16 needle See Rx Instructions .Route Qty: 100 0RF Rx Instructions: As directed May substitute epinephrine [EpiPen] 0.3 mg/0.3 mL auto-injector 0.3 mg IM Q10M PRN (Reason: Anaphylaxis) Qty: 2 0RF Rx Instructions: for 2 doses liraglutide [Victoza 2-Mike] 0.6 mg/0.1 mL (18 mg/3 mL) pen injector 1.8 mg SUBCUT DAILY 30 Days Qty: 9 3RF (DME) Cam boot to left See Rx Instructions .Route .MEDSUPPLY Qty: 1 0RF Rx Instructions: As directed hydroxychloroquine 200 mg tablet 200 mg PO BID Qty: 60 11RF Emgality Syringe 120 mg/mL syringe 240 mg SUBCUT ONCE Qty: 2 0RF Emgality Syringe 120 mg/mL syringe 120 mg SUBCUT .monthly Qty: 1 5RF propranolol 10 mg tablet 10 mg PO BID Qty: 180 3RF clonazepam 2 mg tablet 2 mg PO BID Qty: 60 4RF rimegepant 75 mg tablet,disintegrating 75 mg PO ONCE PRN (Reason: migraine headache) Qty: 8 0RF Rx Instructions: Do not exceed 75mg in 24 hour period levothyroxine 125 mcg tablet 125 mcg PO DAILY Qty: 90 2RF bupropion HCl 300 mg tablet extended release 24 hr 300 mg PO DAILY Rx Instructions: TAKE 1 TABLET BY MOUTH EVERY DAY fluoxetine 20 mg capsule 20 mg PO DAILY Rx Instructions: TAKE 1 CAPSULE BY MOUTH DAILY cholecalciferol (vitamin D3) 1,250 mcg (50,000 unit) capsule 50,000 unit PO .WEEKLY Rx Instructions: 50,000 units orally weekly; 1 pill a week on sundays cephalexin 500 mg capsule 500 mg PO TID 7 Days Qty: 21 0RF gabapentin 100 mg capsule 100 mg PO TID Rx Instructions: TAKE ONE CAPSULE BY MOUTH THREE TIMES DAILY Discharge Orders: Discharge ED (Routine); Ordered 08/13/24 Ordered By: Clara Johnson Referrals: Antonio Nash MD [Primary Care Provider, Family Practice] Patient Instructions: Animal Bite (ED) Activity Restrictions/Additional Instructions: Please continue your antibiotics as prescribed. Your tetanus has been updated. We spoke about rabies postexposure prophylaxis but you have declined. Print Language: Indonesian Coding Level of Care Code ED Digital Solution Architect for Ankit Willis
[2024-08-13] MEDS: tetanus-dipt-pertussis 0.5 mL SDV IM (14:41)
[2024-08-13 14:43] VITALS: RESP 18
== END 2024-08-13 14:45 | disposition home or self-care (01) ==
PROVIDERS: Emergency Provider Physician Assistant; PCP Family Medicine
DX: S61.552A Open bite of left wrist, initial encounter (principal); W54.0XXA Bitten by dog, initial encounter; Z20.3 Contact with and (suspected) exposure to rabies; Z29.14 Encounter for prophylactic rabies immune globulin
CPT/HCPCS: 90471; 90715; 99283

== ENCOUNTER → 2024-08-30 08:03 | Outpatient (BNVA) | payer MEDICARE, SELFPAY | PROVIDERS: PCP Family Medicine; Visit Provider Internal Medicine | DX: E03.8 Other specified hypothyroidism (principal); R13.10 Dysphagia, unspecified; E66.9 Obesity, unspecified; R29.818 Other symptoms and signs involving the nervous system; M06.9 Rheumatoid arthritis, unspecified | CPT/HCPCS: 36415; 84439; 84443; 99214 ==

== ENCOUNTER → 2024-12-13 12:36 | Outpatient (BNVA) | payer MEDICARE, SELFPAY | PROVIDERS: PCP Family Medicine; Visit Provider Family Medicine | DX: R35.0 Frequency of micturition (principal) | CPT/HCPCS: 81000; 87086 ==

== ENCOUNTER → 2025-02-20 15:50 | Outpatient (BNVA) | payer MEDICARE, SELFPAY | PROVIDERS: PCP Family Medicine; Visit Provider Family Medicine | DX: N18.9 Chronic kidney disease, unspecified (principal) | CPT/HCPCS: 81000 ==